=== PATIENT | female | born 1955 | race Caucasian/White ===

== ENCOUNTER 2021-09-01 09:35 | Outpatient (REF) | payer MEDICARE, SELFPAY | END 2021-09-01 09:36 | disposition home or self-care (01) | LOC: HO.BBR 09:35 | PROVIDERS: Visit Provider Internal Medicine Hematology & Oncology | DX: Z13.89 Encounter for screening for other disorder (principal) ==

== ENCOUNTER 2022-01-02 09:12 | Outpatient (REF) | payer MEDICARE, SELFPAY | END 2022-01-02 09:13 | disposition home or self-care (01) | LOC: HO.BBR 09:12 | PROVIDERS: Visit Provider Internal Medicine Hematology & Oncology | DX: Z13.89 Encounter for screening for other disorder (principal) ==

== ENCOUNTER 2022-10-15 09:22 | Outpatient (REF) | payer MEDICARE, SELFPAY | END 2022-10-15 09:23 | disposition home or self-care (01) | LOC: HO.BBR 09:22 | PROVIDERS: Visit Provider Internal Medicine Hematology & Oncology | DX: Z13.89 Encounter for screening for other disorder (principal) ==

== ENCOUNTER 2023-03-19 09:15 | Outpatient (REF) | payer MEDICARE, SELFPAY | END 2023-03-19 09:16 | disposition home or self-care (01) | LOC: HO.BBR 09:15 | PROVIDERS: Visit Provider Internal Medicine Hematology & Oncology | DX: Z13.89 Encounter for screening for other disorder (principal) ==

== ENCOUNTER 2023-07-17 09:08 | Outpatient (REF) | payer MEDICARE, SELFPAY | END 2023-07-17 09:09 | disposition home or self-care (01) | LOC: HO.BBR 09:08 | PROVIDERS: Visit Provider Internal Medicine Hematology & Oncology | DX: Z13.89 Encounter for screening for other disorder (principal) ==

== ENCOUNTER 2024-10-13 13:08 | Outpatient (AMB) | payer MEDICARE, SELFPAY ==
[2024-10-13 13:32] VITALS: BP 110/70; PULSE 72; O2SAT 96; BMI 24.7
--- NOTE | 2024-10-13 13:32 | A.OFFVIS_ITS ---
Vital Signs 10/13/24 13:32 Height 5 ft 4 in Weight 143 lb 15.39 oz BMI 24.7 BP 110/70 Blood Pressure Location Lt brachial Position Sitting Pulse 72 Pulse Source Pulse Oximeter Pulse Oximetry (%) 96 Oxygen Delivery Method Room Air Intake Visit Reasons: OA Intake Note: Patient is here for follow up on osteoarthritis, giant cell arteritis. Patient would like have refill of Alendronate. Allergies codeine Allergy (Mild, Verified 10/13/24 13:37) Vomiting environmental allergies Allergy (Mild, Verified 10/13/24 13:37) swelling, watery eyes, swelling lips tetracycline Allergy (Mild, Verified 10/13/24 13:37) Unknown gabapentin Adverse Reaction (Intermediate, Verified 10/13/24 13:37) ryder, sick HPI HPI OA: Details: Off of Actemra since June [address] Geoff HOU. She developed nausea, headaches, fatigue, weakness. GI symptoms have been intermittent.Nausea is constant. Loosing weight. Rheumatology records reviewed from [facility]. Review of Systems Const All systems reviewed & are unremarkable except as noted in HPI and below Physical Exam Vital Signs: Last Vital Signs Pulse 72 10/13/24 13:32 BP 110/70 10/13/24 13:32 Pulse Ox 96 10/13/24 13:32 Oxygen Delivery Method Room Air 10/13/24 13:32 BMI result Body Mass Index 24.7 Const Other: General: Comfortable CVS: RRR Respiratory: clear to auscultation bilaterally. Good respiratory effort Skin: No lesions seen MSK: No tenderness of bilateral temples. +2 radial pulse bilaterally. A few P IP knees are tender bilaterally. No synovitis of any joints. [place] nodes present. 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 Good range of motion of upper extremity and lower extremity. Assessment & Plan Assessment & Plan (1) Giant cell arteritis: Comment: Patient has biopsy confirmed GCA (L bx 09/2020) treated with prednisone (09/2020-10/2023) and Actemra (08/2021-06/2024) now presenting with recurrent symptoms of headaches nausea, vomiting, weight loss as patient had on initial presentation with elevated inflammatory arthritis consistent with relapsed disease. Her inflammatory markers from 04/13/2024 at the [facility] were normal with ESR 0.5 mg/dL and CRP 1 mm/hr while she was on Actemra and in remission. She has relapse since being off of Actemra since 07/14/2024. Code(s): M31.6 - Other giant cell arteritis Category: Medical Plan: Start prednisone 10 mg daily Patient will call office in 2 weeks to report update. If symptoms have resolved, she will continue prednisone 10 mg daily for another 2 weeks and recheck inflammatory markers 1 month from starting prednisone. If symptoms have not completely resolved, we will need to increase prednisone. Start Actemra 162 mg subcutaneous weekly injection MANDY. [facility] pharmacy. Return to clinic in 3 months or sooner if needed (2) Osteopenia with high risk of fracture: Comment: Last bone density 10/14/2023 incomplete report in EMR. Code(s): M85.80 - Other specified disorders of bone density and structure, unspecified site Category: Medical Plan: We will request bone density report from 2020 and 2022 from the [facility] Continue alendronate 70 mg once weekly Continue calcium 600 mg twice a day and vitamin-D 25 mcg daily Orders: Orders Complete Blood Count Auto Diff 10/15/24 M31.6 - Other giant cell arteritis Albumin Level 10/15/24 M85.80 - Other specified disorders of bone density and structure, unspecified site Alanine Aminotransferase 10/15/24 M31.6 - Other giant cell arteritis Aspartate Amino Transferase 10/15/24 M31.6 - Other giant cell arteritis C Reactive Protein 10/15/24 M31.6 - Other giant cell arteritis Creatinine 10/15/24 M31.6 - Other giant cell arteritis Erythrocyte Sedimentation Rate 10/15/24 M31.6 - Other giant cell arteritis Vitamin D 25-OH Total 10/15/24 M85.80 - Other specified disorders of bone density and structure, unspecified site Calcium 10/15/24 M85.80 - Other specified disorders of bone density and structure, unspecified site Collagen Type I C-Telopeptide 10/15/24 M85.80 - Other specified disorders of bone density and structure, unspecified site Alkaline Phosphatase Bone 10/15/24 M85.80 - Other specified disorders of bone density and structure, unspecified site Coding Level of Care Code Est Pt Level 5 (43142) Complex EM visit Add On G2211 Diagnoses Giant cell arteritis M31.6 Osteopenia with high risk of fracture M85.80
== END 2024-10-13 14:21 | disposition home or self-care (01) ==
PROVIDERS: PCP Internal Medicine; Referring Provider Internal Medicine; Visit Provider Internal Medicine Rheumatology
DX: M31.6 Other giant cell arteritis (principal); M85.80 Other specified disorders of bone density and structure, unspecified site
CPT/HCPCS: 99214; G2211

== ENCOUNTER → 2024-10-13 13:08 | Outpatient (BNVA) | payer MEDICARE, SELFPAY | PROVIDERS: PCP Internal Medicine; Visit Provider Internal Medicine Rheumatology | DX: M31.6 Other giant cell arteritis (principal); M85.80 Other specified disorders of bone density and structure, unspecified site | CPT/HCPCS: 99212 ==

== ENCOUNTER 2024-10-15 09:40 | Outpatient (REF) | payer MEDICARE, SELFPAY ==
[2024-10-15 13:17] LABS: MANUAL DIFF FLAG NO
[2024-10-15 13:20] LABS: Basophils Absolute Auto 0.1 X10*3/uL (0.0-0.2); Basophils Percent Auto 1.1 % (0-2); Eosinophils Absolute Auto 0.3 X10*3/uL (0.0-0.4); Eosinophils Percent Auto 3.7 % (0-4); Hematocrit 36.7 % (37.0-47.0); Hemoglobin 12.2 g/dl (12.0-16.0); Imm Gran Abs Auto 0.02 X10*3/uL (0.00-0.03); Imm Gran Pct Auto 0.3 % (0.0-0.4); Lymphocytes Percent Auto 26.6 % (20-40); Mean Corpuscular HGB Conc 33.2 g/dl (31.0-35.0); Mean Corpuscular Hemoglobin 31.5 pg (27.0-33.0); Mean Corpuscular Volume 94.8 fL (80.0-98.0); Mean Platelet Volume 9.7 fL (9.4-12.3); Monocytes Absolute Auto 0.6 X10*3/uL (0.1-1.2); Monocytes Percent Auto 7.7 % (2-11); Neutrophils Absolute Auto 4.6 x10*3/uL (2.0-8.3); Neutrophils Percent Auto 60.6 % (45-73); Platelet Count 322 X10*3/uL (160-400); Red Blood Count 3.87 X10*6/uL (4.20-5.50); Red Cell Distribution Width 13.7 % (11.0-16.0); White Blood Count 7.6 X10*3/uL (4.8-10.8)
[2024-10-15 13:44] LABS: Alanine Aminotransferase 29 U/L (0-31); Aspartate Amino Transferase 27 U/L (5-31); C Reactive Protein 0.93 mg/dL (< or = 0.50); Estimated Glomerular Filt Rate > 60
[2024-10-15 13:55] LABS: Vitamin D 25-OH Total 35.1 ng/mL (>30)
[2024-10-15 14:21] LABS: Erythrocyte Sedimentation Rate 32 MM/HR (0-20)
[2024-10-19 21:28] LABS: Collagen Type I C-Telopeptide 98 pg/mL (see note)
[2024-10-21 22:34] LABS: Alkaline Phosphatase Bone 10.9 mcg/L (5.6-29.0)
== END 2024-10-15 09:41 | disposition home or self-care (01) ==
LOC: HO.HMGCLDS 09:40
PROVIDERS: PCP Internal Medicine; Visit Provider Internal Medicine Rheumatology
DX: M85.80 Other specified disorders of bone density and structure, unspecified site (principal); M31.6 Other giant cell arteritis
CPT/HCPCS: 36415; 82040; 82306; 82310; 82523; 82565; 84075; 84450; 84460; 85025; 85652; 86140

== ENCOUNTER 2025-01-12 10:24 | Outpatient (AMB) | payer MEDICARE, SELFPAY ==
--- NOTE | 2025-01-12 10:25 | A.OFFVIS_ITS ---
Vital Signs 01/12/25 10:27 Height 5 ft 4 in Weight 146 lb BMI 25.1 BP 130/64 Blood Pressure Location Lt brachial Position Sitting Pulse 83 Pulse Source Pulse Oximeter Pulse Oximetry (%) 97 Oxygen Delivery Method Room Air Intake Visit Reasons: Follow Up 3mo Intake Note: Pt is present today for a follow up for OA. 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 GCA symptoms have resolved. She denies any new symptoms. Joint pain also resolved on prednisone. No recent infections. She was also started on atorvastatin due to hyperlipidemia. Review of Systems Const All systems reviewed & are unremarkable except as noted in HPI and below Physical Exam Vital Signs: Last Vital Signs Pulse 83 01/12/25 10:27 BP 130/64 01/12/25 10:27 Pulse Ox 97 01/12/25 10:27 Oxygen Delivery Method Room Air 01/12/25 10:27 BMI result Body Mass Index 25.1 Const Other: General: Comfortable CVS: RRR Respiratory: clear to auscultation bilaterally. Good respiratory effort Skin: No lesions seen MSK: No tenderness of bilateral temples. +2 radial pulse bilaterally. No tenderness of any joint. No synovitis of any joints. [place] nodes present. 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 Good range of motion of upper extremity and lower extremity. Assessment & Plan Assessment & Plan (1) Giant cell arteritis: Comment: Patient has biopsy confirmed GCA (L bx 09/2020) treated with prednisone (09/2020-10/2023) and Actemra (08/2021-06/2024), relapsed 09/2024 presenting with recurrent symptoms of headaches nausea, vomiting, weight loss as patient had on initial presentation with elevated inflammatory arthritis. Her inflammatory markers from 04/13/2024 at the [facility] were normal with ESR 0.5 mg/dL and CRP 1 mm/hr while she was on Actemra and in remission. She is back on Actemra and prednisone 20 mg daily with resolution of symptoms. Inflammatory markers normalized January 05/2025. Code(s): M31.6 - Other giant cell arteritis Category: Medical Plan: Decrease prednisone 2.5 mg every 2 weeks until she is on 10 mg daily. She will remain on prednisone 10 mg daily until follow-up Continue Actemra 162 mg subcutaneous injection weekly Labs for drug monitoring on high-risk medication up-to-date from 01/05/2025 including lipid panel. Requesting lab report to be scanned in to EMR Return to clinic in 3 months Orders: Orders C Reactive Protein Today M31.6 - Other giant cell arteritis Erythrocyte Sedimentation Rate Today M31.6 - Other giant cell arteritis Medications: New prednisone Take 7 tablet daily for 2 weeks, 6 tablet daily 2 weeks, 5 tablet daily 2 weeks, then stay on prednisone 10mg daily 2.5 mg PO DIRECTED 308 tabs 0RF Coding Level of Care Code Est Pt Level 4 (47366) Complex EM visit Add On G2211 Diagnoses Giant cell arteritis M31.6
[2025-01-12 10:27] VITALS: BP 130/64; PULSE 83; O2SAT 97; BMI 25.1
--- OUTSIDE RECORDS SUMMARY | 2025-01-12 11:23 | XMS_ITS | Clinical Summary ---
Author Organization [facility] Address [address] [place] [id number] Care Team Providers Care Track Laminating Machine Tender Name Role Phone Pcp, No Primary Care Provider Unavailabl e Social History Tobacco Use Types Packs/Day Years Used Date Smoking Tobacco: Never Assessed Sex and Gender Information Value Date Recorded Sex Assigned at Female 12/11/2024 3:42 PM EST Gender Identity Female 12/11/2024 3:42 PM EST Sexual Orientation Not on file Plan of Treatment Upcoming Encounters Date Type Department Care Team (Late st Contact Info) Description 05/14/2025 10:45 AM EDT Office Visit [address] [id number] Verito Rutherford MD [address] [place] [address] Health Maintenance Due Date Last Done Comments Hepatitis C Virus Screening 1954 DTaP/Tdap/Td Vaccines (1 - Tdap) 1973 Mammogram 1994 Colonoscopy 1999 Pneumococcal Vaccines 50+ (1 of 1 - PCV) 2004 Zoster (Shingles) Vaccine (1 of 2) 2004 DXA Bone Density (Females,Ag es 65 and older) 2019 Influenza Vaccine 06/25/2024 COVID-19 Vaccine ( - 2023-2 5 season) 2024 RSV Vaccine 60 years and old er and Patients (1 - 1-dose 75+ series) 2029 Hepatitis B Vaccines Aged Out No long er eligible based on patient's age to complete this topic Care Teams Track Laminating Machine Tender Relationship Specialty Start Date End Date Pcp, No PCP - General General Medicine 10/12/24
--- OUTSIDE RECORDS SUMMARY | 2025-01-12 11:23 | XMS_ITS | Encounter Summary ---
Author Organization [facility] Address [address] [place] [address] Care Team Providers Care Tunnel Miner Name Role Phone Riley Martinez MD Primary Care Provide r Reason for Visit * Reason Comments Follow-up Encounter Details Date Type Department Care Team (Latest Contact Info) Description 12/30/2024 9:40 AM EST Office Visit [facility] [address] [facility] [place] [address] [place] [address] Rosemarie Paris NP [address] [place], [place] [id number] Coronary artery disease involving [place] coronary artery of [place] heart without angina pectoris (Primary Dx); Hypertension, unspecified type; Pure hypercholesterolemia Social History Tobacco Use Types Packs/Day Years Used Date Smoking Tobacco: Every Day Cigarettes Smokeless Tobacco: Never Tobacco Cessation:Ready to Q uit: Not Asked; Counseling Given: Not Answered Alcohol Use Standard Drinks/Week Comments Yes 3 (1 standard drink = 0.6 oz pur e alcohol) Comments Unknown Sex and Gender Information Value Date Recorded Sex Assigned at Not on file Legal Sex Female 3:02 PM EST Gender Identity Not on file Sexual Orientation Not on file documented as of this encounter Last Filed Vital Signs Vital Sign Reading Time Taken Comments Blood Pressure 138/58 12/30/2024 10:48 AM EST Pulse 80 12/30/2024 9:51 AM EST Temperature - - Respiratory Rate - - Oxygen Saturation 97% 12/30/2024 9:51 AM EST Inhaled Oxygen Concentration - - Weight 70.8 kg (156 lb) 12/30/2024 9:51 AM EST Height 162.6 cm (5' 4 ) 12/30/2024 9:51 AM EST Body Mass Index 26.78 12/30/2024 9:51 AM EST documented in this encounter Ordered Prescriptions Prescription Sig Dispense Quantity Refills Last Filled Start Date End Date atorvastatin (LIPITOR) 40 mg tablet Take 1 tablet (40 mg total) by mouth 1 (one) time each day. 90 each 3 12/30/2024 documented in this encounter Progress Notes * Diana Mirza RN - 12/30/2024 11:02 AM ESTAssociated Problem(s): HLD (hyperlipidemia) Patient has a history of hyperlipidemia and given history of coronary artery disease LDL goal should be less than 70. Lipid panel completed August 2024 LDL 107. Will increase atorvastatin from 20 mgto 40 mg daily and have her repeat a lipid panel in 12 weeks. Will continue her efforts to increaseexercise and follow a heart healthy diet. * Diana Mirza RN - 12/30/2024 11:00 AM ESTAssociated Problem(s): Hypertension Patient with a history of hypertension on amlodipine 10 mg once a day. Blood pressure initially elevated 140/70, mildly improved on recheck at 138/58. Patient advised to monitor her blood pressure a couple times a week for the next few weeks and contact the office if she finds the average greater than 140/80. If blood pressure is noted to be elevated at home can consider adding hydrochlorothiazide as she does have a propensity to hold onto fluid with salty fluid foods or may consider a beta-miriam which could be helpful for her significant anxiety. Patient will contact the office with blood pressure readings in about a month, for now will continue amlodipine as prescribed. * Diana Mirza RN - 12/30/2024 10:58 AM ESTAssociated Problem(s): Coronary artery disease involving [place] coronary artery of [place] heart without angina pectoris Patient has a history of coronary artery disease first noted on a low-dose CT scan in 2020 with a heavy LAD calcification noted on CT attenuation during a nuclear stress test in June 2023. She is not having any current signs or symptoms of coronary insufficiency at this time. Will continue with aspirin and amlodipine as prescribed. Patient is aware to contact provider should she develop any chest discomfort or shortness of breathat rest or with exertion and seek immediate medical attention for symptoms lasting longer than 10 to 15 minutes by calling 911. 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 Moose Paredes Nadeen is a 69 y.o. old female here for cardiac follow up of: Hypertension, hyperlipidemia, and coronary artery disease. She was last seen by Dr. Virk in May 2023. 1. February 2023 ETT showing no ischemic EKG changes however motion artifact made several exercise EKGis difficult to interpret. 2. June 2023 nuclear stress test showing normal perfusion and no evidence of ischemia or infarct by myocardial perfusion imaging after attenuation correction at an adequate level of stress. LVEF calculated 65%. Heavy LAD calcification was noted on CT attenuation. Patient presents today with no cardiac complaints. 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 She also had a recurrence of giant cell arteritis and is back on prednisone. No recent hospitalizations. She denies any chest discomfort and shortnessof breath at rest or with exertion. She denies palpitations. She denies any dizziness/lightheadedness, near-syncope, or syncope. She denies orthopnea, PND, and uses 1 pillow at night. On occasion shewill notice bilateral ankle swelling, specifically after having a salty meal. This typically resolves overnight. She has been riding her exercise bike 10 to 15 minutes a few times a week. She does not have any symptoms with this level of activity. He has been taking her medications as prescribed. She attempts to follow a low-salt, low-fat diet. She is still smoking cigarettes. ACTIVE MEDICATIONS: Outpatient Medications Marked as Taking for the 12/30/24 encounter (Office Visit) with Rosemarie Paris NP Medication Sig Dispense Refill albuterol sulfate (ProAir RespiClick) 90 mcg/actuation aerosol powdr breath activated Inhale into the lungs. amLODIPine (NORVASC) 10 mg tablet TAKE 1 TABLET BY MOUTH DAILY 90 tablet 1 aspirin 81 mg chewable tablet Chew 1 tablet (81 mg total) 1 (one) time each day. buPROPion XL (WELLBUTRIN XL) 300 mg 24 hr tablet Take 1 tablet (300 mg total) by mouth 1 (one) timeeach day. cetirizine (ZyrTEC) 10 mg tablet Take 1 tablet (10 mg total) by mouth 1 (one) time each day. cholecalciferol (VITAMIN D-3) 5,000 Units tablet Take by mouth. MAGNESIUM CARBONATE ORAL Take by mouth. methylphenidate (RITALIN) 20 mg tablet Take 1 tablet (20 mg total) by mouth 1 (one) time each day. pantoprazole (PROTONIX) 40 mg EC tablet Take 1 tablet (40 mg total) by mouth 2 (two) times a day. 180 tablet 3 predniSONE (DELTASONE) 20 mg tablet Take 1 tablet (20 mg total) by mouth 1 (one) time each day. tiZANidine (ZANAFLEX) 2 mg tablet Take 1 tablet (2 mg total) by mouth every 6 (six) hours if needed. tocilizumab (ACTEMRA) subcutaneous injection Inject into the skin. valACYclovir (VALTREX) 1 gram tablet if needed. [DISCONTINUED] atorvastatin (LIPITOR) 20 mg tablet TAKE 1 TABLET BY MOUTH DAILY 30 tablet 3 PAST MEDICAL HISTORY: Patient Active Problem List Diagnosis Date Noted Date Diagnosed Coronary artery disease involving [place] coronary artery of [place] heart without angina pectoris 12/30/2024 Hypertension 06/21/[address] 06/20/2023 HLD (hyperlipidemia) 06/20/2023 Resolved Problems Diagnosis Date Diagnosed Chest pain Last Assessment & Plan: She has been experiencing exertional chest burning sensation for a few years and symptom has been more or less stable without acceleration. Symptoms are concerning for exertional angina. But she did not have similar chest discomfort with target heart rate and reasonable functional capacity during ETT. She does have a coronary artery calcification and symptoms are suggestive of angina. I will repeat stress test with nuclear perfusion modality. I will increase amlodipine to 10 mg daily due to suboptimal control hypertension. LDL is not at target either. I will increase atorvastatin to 20 mg daily. ALLERGIES: Allergies Allergen Reactions Gabapentin Tetracycline SOCIAL HISTORY: Social History Tobacco Use Smoking status: Every Day Types: Cigarettes Smokeless tobacco: Never Substance Use Topics Alcohol use: Yes Alcohol/week: 3.0 standard drinks of alcohol Types: 3 Glasses of wine per week PHYSICAL EXAM: Vitals: 12/30/24 0951 12/30/24 1048 BP: (!) 140/70 138/58 BP Location: Left arm Patient Position: Sitting BP Cuff Size: Adult Pulse: 80 SpO2: 97% Weight: 70.8 kg (156 lb) Height: 1.626 m (64 ) GENERAL: WDWN 69 y.o. female resting comfortably on the exam table in no acute distress HEENT: NCAT, negative JVD, carotid pulses +2 bilaterally, no bruit RESPIRATORY: Lungs clear, No wheezes/rales/rhonchi CARDIAC: normal S1S2, RRR no Murmur/heaves/rubs/gallops, no S3S4 EXTREMITIES: no edema PULSES: Radial and Pedal +2 bilaterally NEURO: A&Ox3 MS: Moving all extremities without focal findings. EKG: Encounter Date: 12/30/24 ECG 12 lead Result Value Ventricular Rate ECG 75 Atrial Rate 75 P-R Interval 134 QRS Duration 96 Q-T Interval 360 QTc 402 P Wave [place] 83 R [place] 76 T [place] 42 ECG Interpretation Normal sinus rhythm Minimal voltage criteria for LVH, may be normal variant Nonspecific ST abnormality Abnormal ECG unchanged prior EKG *Note: Due to a large number of results and/or encounters for the requested time period, some results have not been displayed. A complete set of results can be found in Results Review. TESTIN09/02/2024 Total cholesterol 191 Triglycerides 111 HDL 64 VLDL 20 LDL 107 As per AHA guidelines and previously established plan of care by Dr. Virk, we discussed the following today: ASSESSMENT/PLAN: Problem List Items Addressed This Visit HLD (hyperlipidemia) Patient has a history of hyperlipidemia and given history of coronary artery disease LDL goal should be less than 70. Lipid panel completed August 2024 LDL 107. Will increase atorvastatin from 20 mgto 40 mg daily and have her repeat a lipid panel in 12 weeks. Will continue her efforts to increaseexercise and follow a heart healthy diet. Relevant Medications atorvastatin (LIPITOR) 40 mg tablet Other Relevant Orders Lipid panel Hypertension Patient with a history of hypertension on amlodipine 10 mg once a day. Blood pressure initially elevated 140/70, mildly improved on recheck at 138/58. Patient advised to monitor her blood pressure a couple times a week for the next few weeks and contact the office if she finds the average greater than 140/80. If blood pressure is noted to be elevated at home can consider adding hydrochlorothiazide as she does have a propensity to hold onto fluid with salty fluid foods or may consider a beta-miriam which could be helpful for her significant anxiety. Patient will contact the office with blood pressure readings in about a month, for now will continue amlodipine as prescribed. Relevant Orders ECG 12 lead (Completed) Coronary artery disease involving [place] coronary artery of [place] heart without angina pectoris - Primary Patient has a history of coronary artery disease first noted on a low-dose CT scan in 2020 with a heavy LAD calcification noted on CT attenuation during a nuclear stress test in June 2023. She is not having any current signs or symptoms of coronary insufficiency at this time. Will continue with aspirin and amlodipine as prescribed. Patient is aware to contact provider should she develop any chest discomfort or shortness of breathat rest or with exertion and seek immediate medical attention for symptoms lasting longer than 10 to 15 minutes by calling 911. Relevant Medications atorvastatin (LIPITOR) 40 mg tablet Orders Placed This Encounter Procedures Lipid panel ECG 12 lead Thank you for allowing us to participate in the care of this patient. The patient will follow up in1 year, sooner PRN. This note is completed with voice recognition software. Please pardon any grammatical or syntax errors. I personally spent a total of 30 minutes, including both [id number] and gsg-upeo-gb-face time on the date of the encounter, addressing the above diagnoses. Activities performed in this time includechart review, obtaining / reviewing history, performing a medically necessary evaluation, documentation and counseling including medical decision making of 1. Coronary artery disease involving [place] coronary artery of [place] heart without angina pectoris 2. Hypertension, unspecified type 3. Pure hypercholesterolemia . Cosigned by Taylor iVrk MD at 12/31/2024 7:55 AM EST documented in this encounter Plan of Treatment Not on file documented as of this encounter Procedures Procedure Name Priority Date/Time Associated Diagnosis Comments LIPID PANEL Routine 01/05/2025 9:45 AM EST Pure hypercholesterolemia ECG 12-LEAD Routine 12/30/2024 2:25 PM EST Hypertension, unspecified type documented in this encounter Results * (ABNORMAL) Lipid panel (01/05/2025 9:45 AM EST) Cholesterol Total 201(H) 100 - 199 mg/dL [facility] Triglycerides 141 0 - 149 mg/dL [facility] HDL Cholesterol 93 >39 mg/dL [facility] VLDL Cholesterol Calculated 24 5 - 40 mg/dL [facility] LDL Chol Calc (NIH) 84 0 - 99 mg/dL [facility] 1 Blood Venous blood specimen / Unknown 01/05/2025 9:45 AM EST 01/05/2025 Narrative [facility] 1 - 01/06/2025 1:05 AM EST Performed at: ??01 - [facility] [address] ??[id number] Direct Care Counselor: Demetrice Jimenez MD, Phone: ??[phone] us Rosemarie Paris NP LAB BLOOD ORDERABLES Final Resu lt [facility] * ECG 12 lead (12/30/2024 2:25 PM EST) Ventricular Rate ECG 75 BPM GEMUSE Atrial Rate 75 BPM GEMUSE P-R Interval 134 ms GEMUSE QRS Duration 96 ms GEMUSE Q-T Interval 360 ms GEMUSE QTc 402 ms GEMUSE P Wave [place] 83 degrees GEMUSE R [place] 76 degrees GEMUSE T [place] 42 degrees GEMUSE ECG Interpretation Normal sinus rhythm Minimal voltage criteria for LVH, may be normal variant Nonspecific ST abnormality Abnormal ECG unchanged prior EKG Confirmed by Sidney VIRK YUFENG ([id number]) on 12/31/2024 7:58:35 AM GEMUSE 12/30/2024 10:0 4 AM EST 12/31/2024 7:58 AM EST Rosemarie Paris NP ECG ORDERABLES Edited Result - Final GEMUSE documented in this encounter Visit Diagnoses Diagnosis Coronary artery disease involving [place] coronary artery of [place] heart without angina pectoris- Primary Hypertension, unspecified type Pure hypercholesterolemia documented in this encounter Discontinued Medications Medication Sig Discontinue Reason Start Date End Da te atorvastatin (LIPITOR) 20 mg tablet TAKE 1 TABLET BY MOUTH DAILY Dose adjustment 12/29/2024 12/30/2024 atorvastatin (LIPITOR) 20 mg tablet Take 1 tablet (20 mg total) by mouth 1 (one) time each day. Dose adjustment 08/25/2024 12/30/2024 docusate sodium (COLACE) 100 mg capsule Take 1 capsule (100 mg total) by mouth 2 (two) times a day. Discontinued by another clinician 12/30/2024 documented as of this encounter Care Teams Tunnel Miner Relationship Specialty Start Date End Date Riley Martinez MD [address] [place] [address] [place] PCP - General 09/18/24 documented as of this encounter
--- OUTSIDE RECORDS SUMMARY | 2025-01-12 11:23 | XMS_ITS | Clinical Summary ---
Author Organization [address] [place] [address] [place] [phone] Phone Care Team Providers Care Winder Helper Name Role Phone Riley Martinez MD Primary Care Provide r Allergies Active Allergy Reactions Criticality Noted Date Comments Gabapentin 06/21/2023 Tetracycline 06/21/2023 Medications pantoprazole (PROTONIX) 40 mg EC tabletIndication s:Gastroesophage al reflux disease with esophagitis, unspecified whether hemorrhage Take 1 tablet (40 mg total) by mouth 2 (two) times a day. 180 tablet 3 4 Active amLODIPine (NORVASC) 10 mg tablet TAKE 1 TABLET BY MOUTH DAILY 90 tablet 1 4 Active MAGNESIUM CARBONATE ORAL Take by mouth. Active albuterol sulfate (ProAir RespiClick) 90 mcg/actuation aerosol powdr breath activated Inhale into the lungs. Active alendronate (FOSAMAX) 70 mg tablet Take 1 tablet (70 mg total) by mouth every 7 (seven) days. Active aspirin 81 mg chewable tablet Chew 1 tablet (81 mg total) 1 (one) time each day. Active buPROPion XL (WELLBUTRIN XL) 300 mg 24 hr tablet Take 1 tablet (300 mg total) by mouth 1 (one) time each day. Active cetirizine (ZyrTEC) 10 mg tablet Take 1 tablet (10 mg total) by mouth 1 (one) time each day. Active cholecalciferol (VITAMIN D-3) 5,000 Units tablet Take by mouth. Active methylphenidate (RITALIN) 20 mg tablet Take 1 tablet (20 mg total) by mouth 1 (one) time each day. Active predniSONE (DELTASONE) 20 mg tablet Take 1 tablet (20 mg total) by mouth 1 (one) time each day. Active tiZANidine (ZANAFLEX) 2 mg tablet Take 1 tablet (2 mg total) by mouth every 6 (six) hours if needed. Active tocilizumab (ACTEMRA) subcutaneous injection Inject into the skin. Active valACYclovir (VALTREX) 1 gram tablet if needed. Active atorvastatin (LIPITOR) 40 mg tablet Take 1 tablet (40 mg total) by mouth 1 (one) time each day. 90 each 3 5 Active atorvastatin (LIPITOR) 20 mg tablet TAKE 1 TABLET BY MOUTH DAILY 30 tablet 3 5 12/30/19 25 Discontinue d(Dose adjustment) atorvastatin (LIPITOR) 20 mg tablet Take 1 tablet (20 mg total) by mouth 1 (one) time each day. 4 12/30/19 25 Discontinue d(Dose adjustment) docusate sodium (COLACE) 100 mg capsule Take 1 capsule (100 mg total) by mouth 2 (two) times a day. 12/30/19 25 Discontinue d(Discontin ued by another clinician) Active Problems Problem Noted Date Diagnosed Date Coronary artery disease invo lving [place] coronary artery of [place] heart without angina pectoris 12/30/2024 Assessment & Plan (12/30/2024 10:58 AM EST): Patient has a history of coronary artery [...] develop any chest discomfort or shortness of breath at rest or with exertion and seek immediate medical attention for symptoms lasting longer than 10 to 15 minutes by calling 911. Hypertension 06/21/2023 Assessment & Plan (12/30/2024 11:00 AM EST): Patient with a history of hypertension on [...] salty fluid foods or may consider a beta- miriam which could be helpful for her significant anxiety. Patient will contact the office with blood pressure readings in about a month, for now will continue amlodipine as prescribed. Abnormal chest CT 06/20/2023 HLD (hyperlipidemia) 06/20/2023 Assessment & Plan (12/30/2024 11:02 AM EST): Patient has a history of hyperlipidemia and given history of coronary artery disease LDL goal should be less than 70. Lipid panel completed August 2024 LDL 107. Will increase atorvastatin from 20 mg to 40 mg daily and have her repeat a lipid panel in 12 weeks. Will continue her efforts to increase exercise and follow a heart healthy diet. Resolved Problems Problem Noted Date Diagnosed Date Resolved Date Chest pain 06/20/2023 12/30/2024 Overview (12/28/2024): Last Assessment & Plan: She has been [...] will increase atorvastatin to 20 mg daily. Encounters Date Type Department Care Team Description 12/30/2024 9:40 AM EST Office Visit [facility] [address] [place] [address] Rosemarie Paris NP Coronary artery disease involving [place] coronary artery of [place] heart without angina pectoris (Primary Dx); Hypertension, unspecified type; Pure hypercholesterolemia 10/28/2024 Telephone Gastroenterology - [address] [facility] [address] [place] [address] Amanda Herrera MA from Last 3 Months Surgical History Surgery Date Site/Laterality Comments OTHER SURGICAL HISTORY PROCEDURE: HISTORY OTHER; COMMENT: cervix cryosurgery cataract OTHER SURGICAL HISTORY PROCEDURE: HISTORY OTHER; COMMENT: EGD OTHER SURGICAL HISTORY PROCEDURE: HISTORY OTHER; COMMENT: ARTHROSCOPIC REPAIR OF ROTATOR CUFF Medical History Medical History Date Comments Abnormal chest CT DX:Abnormal ch est CT Acromioclavicular joint arthritis DX:Acromioclavicular joint arthritis Adjustment disorder with anxiety DX:Adjustment disorder with anxiety Anxiety DX:Anxiety Rosado esophagus DX:Rosado eso phagus Colon polyp DX:Colon polyp Depression DX:Depression Liver cyst DX:Liver cyst Diverticulosis of sigmoid colon DX:Diverticulosis of sigmoid colon Erythema nodosum DX:Erythema nod osum HTN (hypertension) DX:HTN (hyper tension) IFG (impaired fasting glucose) D X:IFG (impaired fasting glucose) Fibrocystic breast disease DX:Fi brocystic breast disease Giant cell arteritis (CMS/HCC) D X:Giant cell arteritis (HCC) H/O anaphylactic shock DX:H/O an aphylactic shock H/O erythema nodosum DX:H/O eryt bimal nodosum Hemochromatosis DX:Hemochromatos is Hoarseness DX:Hoarseness IPMN (intraductal papillary mucinous neoplasm) DX:IPMN (intraductal papilla ry mucinous neoplasm) Lower back pain DX:Lower back pa in Lumbar radiculopathy DX:Lumbar r adiculopathy Lumbar sprain DX:Lumbar sprain Macrocytic DX:Macrocytic OA (osteoarthritis) of knee DX:O A (osteoarthritis) of knee Psoriasis DX:Psoriasis Nasal septal deviation DX:Nasal septal deviation Sciatica DX:Sciatica Scoliosis DX:Scoliosis Temporal arteritis (CMS/HCC) DX: Temporal arteritis (HCC) Urinary frequency DX:Urinary desi quency Chest pain 06/20/2023 Last Assessment & Plan: She has been experiencing exertional chest burning sensation for a few years and symptom has been more or less stable without acceleration. Symptoms are concerning for exertional angina. But she did not have similar chest discomfort with target heart rate and reasonable functional capacity during ETT. She does have a coronary artery calcification and symptoms are sug Social History Tobacco Use Types Packs/Day Years [...] on file Sexual Orientation Not on file Obstetrics History Last Filed Vital Signs Vital Sign Reading [...] Mass Index 26.78 12/30/2024 9:51 AM EST Plan of Treatment Health Maintenance Due Date Last Done Comments Breast Cancer Screening 1955 Hepatitis A Vaccines (1 of 2 - Risk 2-dose series) 1973 Zoster Vaccines (1 of 2) 2004 Hepatitis B Vaccines (1 of 3 - Risk 3-dose series) 2014 RSV Immunization Patients 60+ Years Old (1 - Risk 60-74 years 1-dose series) 2014 DTaP,Tdap,and Td Vaccines (2 - Td or Tdap) 11/25/2017 11/25/2007 Pneumococcal Vaccine: 50+ Years (2 of 2 - PPSV23) 01/21/2020 11/26/2019 Colorectal Cancer Screening: Colonoscopy 10/24/2022 Depression Screening 10/24/2022 Falls Risk Assessment 10/24/2022 Hepatitis C Screening 10/24/2022 Medicare Annual Wellness Visit 10/24/2022 Osteoporosis Screening (Bone Density Screening) 10/24/2022 Social Influencers of Health Screening 10/24/2022 Hypertension/CHF/CAD Annual BMP Blood Test 12/24/2023 Cholesterol Screening (Lipid Panel) 01/05/2030 01/05/2025, 06/21/2023 Influenza Vaccine Completed 09/17/2024, , 08/30/2022, Additional history exists COVID-19 Vaccine Completed 10/06/2024, , 04/27/2022, Additional history exists HIB Vaccines Aged Out No longer eligi ble based on patient's age to complete this topic HPV Vaccines Aged Out No longer eligi ble based on patient's age to complete this topic IPV Vaccines Aged Out No longer eligi ble based on patient's age to complete this topic MMR Vaccines Aged Out No longer eligi ble based on patient's age to complete this topic Meningococcal ACWY Vaccine Aged Out N o longer eligible based on patient's age to complete this topic Meningococcal B Vacine Aged Out No lo nger eligible based on patient's age to complete this topic RSV Immunization Patients Under 20 months Aged Out No longer eligible based on patient's age to complete this topic Varicella Vaccines Aged Out No longer eligible based on patient's age to complete this topic Procedures Procedure Name Priority Date/Time Associated Diagnosis Comments LIPID PANEL Routine 01/05/2025 9:45 AM EST Pure hypercholesterolemia ECG 12-LEAD Routine 12/30/2024 2:25 PM EST Hypertension, unspecified type from Last 3 Months Results * (ABNORMAL) Lipid panel (01/05/2025 9:45 [...] AM EST Performed at: ??01 - [facility] [address] ??[id number] Wall Scraper: Demetrice Jimenez MD, Phone: ??[phone] us Rosemarie Paris NP LAB BLOOD ORDERABLES Final Resu lt Performing Organization Address City/[facility]/ZIP Co de Phone Number [facility] 1 * ECG 12 lead (12/30/2024 2:25 PM EST) Ventricular Rate ECG 75 BPM GEMUSE Atrial Rate 75 BPM GEMUSE P-R Interval 134 ms GEMUSE QRS Duration 96 ms GEMUSE Q-T Interval 360 ms GEMUSE QTc 402 ms GEMUSE P Wave [place] 83 degrees GEMUSE R [place] 76 degrees GEMUSE T [place] 42 degrees GEMUSE ECG Interpretation Normal sinus rhythm Minimal voltage criteria for LVH, may be normal variant Nonspecific ST abnormality Abnormal ECG unchanged prior EKG Confirmed by Sidney MARQUEZ YUFENG ([id number]) on 12/31/2024 7:58:35 AM GEMUSE 12/30/2024 10:0 4 AM EST 12/31/2024 7:58 AM EST Rosemarie Paris MACHINE REPAIRER ECG ORDERABLES Edited Result - Final Performing Organization Address [facility] Co de Phone Number GEMUSE from Last 3 Months Insurance [employer] - [place] MEDICARE ADVANTAGE Care Teams Winder Helper Relationship Specialty Start Date End Date Riley Martinez MD [address] [place] [address] [place] PCP - General 09/18/24
--- OUTSIDE RECORDS SUMMARY | 2025-01-12 11:23 | XMS_ITS | Clinical Summary ---
Author Organization [facility] Address [address] [place] [address] Care Team Providers Care National Accounts Recruiter Name Role Phone Verito Rutherford MD Primary Care Provider [phone] Allergies Active Allergy Reactions Criticality Noted Date Comments Codeine Nausea Only 05/22/2018 Medications Medication Sig Dispensed Refills Start Date End Date Status buPROPion (WELLBUTRIN XL) 300 MG 24 hr tablet Take 300 mg by mouth daily. 0 Active cetirizine (ZYRTEC) 5 MG tablet Take 5 mg by mouth daily. 0 Active nabumetone (RELAFEN) 500 MG tablet Take 500 mg by mouth 2 (two) times a day. 0 Active acyclovir (ZOVIRAX) 800 MG tablet Take 800 mg by mouth as needed. 0 Active tiZANidine (ZANAFLEX) 2 MG tablet Take 2 mg by mouth as needed. 0 Active Active Problems No known active problems Family History Medical History Relation Name Comments Diabetes Sister Alejandrina Stroke Sister Alejandrina Relation Name Status Comments Sister Alejandrina Social History Tobacco Use Types Packs/Day Years Used Date Smoking Tobacco: Every Day Cigarettes 30 Smokeless Tobacco: Never Alcohol Use Standard Drinks/Week Comments Yes 0 (1 standard drink = 0.6 oz pur e alcohol) socially Sex and Gender Information Value Date Recorded Sex Assigned at Not on file Gender Identity Not on file Sexual Orientation Not on file Last Filed Vital Signs Vital Sign Reading Time Taken Comments Blood Pressure 147/57 05/22/2018 2:34 PM EDT Pulse 75 05/22/2018 2:34 PM EDT Temperature 37.3 ??C (99.1 ??F) 05/22/2018 2:34 PM ED T Respiratory Rate - - Oxygen Saturation - - Inhaled Oxygen Concentration - - Weight 67.9 kg (149 lb 12.8 oz) 05/22/2018 2:34 PM EDT Height 162.6 cm (5' 4 ) 05/22/2018 2:34 PM EDT Body Mass Index 25.71 05/22/2018 2:34 PM EDT Plan of Treatment Health Maintenance Due Date Last Done Comments Hepatitis C Screening 1955 COVID-19 Vaccine (#1) 05[birth year]17/1956 Pneumococcal Vaccine (1 of 2 - PCV) 1960 Depression Screening 1966 Preventative Health Evaluation 1972 DTap / Tdap / Td (1 - Tdap) 1973 Colon Cancer Screening (Colonoscopy) 1999 Breast Cancer Screening (Mammogram) 2004 Shingrix-Zoster Vaccine (1 of 2) 2004 Fall Risk Assessment 2019 Osteoporosis Screening (DEXA Scan) 2019 Influenza Vaccine (#1) 2024 RSV Adult > 60+ Yrs or Pregn ant (1 - 1-dose 75+ series) 2029 Hepatitis B Vaccines Aged Out No long er eligible based on patient's age to complete this topic RSV Ped < 20 months Aged Out No longe r eligible based on patient's age to complete this topic Care Teams National Accounts Recruiter Relationship Specialty Start Date End Date Verito Rutherford MD [address] [place] [address] [place] [address] PCP - General Mechanical Engineering Lecturer 05/13/18
--- OUTSIDE RECORDS SUMMARY | 2025-01-12 11:24 | XMS_ITS ---
Author Organization [facility] Address [address] [place] [address] Care Team Providers Care Paper Supervisor Name Role Phone Jerod Raymond [phone] ALLERGIES, ADVERSE REACTIONS, ALERTS Substance Code Code System Type Reaction Severity Status Start Date End Date chlortetracycline 2408 RxNorm Drug allergy () 0 codeine 2670 RxNorm Drug allergy () 0 gentamicin 9166488 RxNorm Drug allergy () 0 codeine 2670 RxNorm Drug allergy () 1 MEDICATIONS Medication Code Code System Start Date Stop Date Route Dosage Directions Fill Instructions atorvastatin calcium RxNorm 08/25/20 24 1 naproxen 7258 RxNorm 9 alendronate sodium RxNorm 10/14/ 023 amlodipine besylate RxNorm 024 1 erythromycin 467501 RxNorm 12/21/19 25 ophthalmic (eye) 0.5 prednisone 204772 RxNorm 9 07/02/20 19 oral 1 bupropion HCl RxNorm 09/25/20 24 1 PROBLEMS Problem Name Code Code System Start Date End Date Stat Hemochromatosis, unspecified 162071185 [facility] 06/27/2019 Active Unspecified thoracic, thoracolumbar and lumbosacral intervertebral disc disorder 83679617 [facility] 06/27/2019 Active Sprain of ligaments of cervical spine, initial encounter 18428186 [facility] 06/27/2019 Active Essential (primary) hypertension 46612038 [facility] Active Unspecified blepharitis righ t lower eyelid 200608802663696 [facility] 12/21/2024 Active ENCOUNTERS Encounter Diagnosis Code Code System Date Stat Unspecified blepharitis righ t lower eyelid 467499966005122 [facility] 12/21/2024 Active IMMUNIZATIONS * None VITAL SIGNS Code Code System Vitals Name Date Value and Un its 8462-4 [facility] Blood Pressure-Diastolic 12/21/2024 70 mmHg 8480-6 [facility] Blood Pressure-Systolic 12/21/2024 1 41 mmHg 8867-4 [facility] Heart Rate 12/21/2024 78 /min 9279-1 [facility] Respiratory Rate 12/21/2024 18 /min 8310-5 [facility] Body Temperature 12/21/2024 96.9 F 66630-0 inc Oxygen Saturation 12/21/2024 97 % SOCIAL HISTORY * None PROCEDURES * None MEDICAL EQUIPMENT * Patient has no history of implantable devices ASSESSMENT Assessment you were evaluated for the e yelid swelling and redness.I suspect you may be developing a blockage of the pores along the eyelid and potentially developing a stye.Apply warm compresses to the area frequently throughout the day with upward massage to the eyelid.Use the ointment as prescribed.As we discussed if you develop any spreading redness, redness going around your eye, fevers, pain with eye movement, or any other new, concerning symptoms please be reevaluated immediately TREATMENT PLAN Type Description Date MEDICATION Take 5 mg/gram (0.5 %) ointment 12/21/2024 APPOINTMENT If not feeling bethany r in 3 day(s), please see your primary care physician. If you do not have a primary care physician, please return to this clinic. 12/21/2024 Lab Tests None GOALS * None HEALTH CONCERNS * No Health Concerns FUNCTIONAL AND COGNITIVE STATUS * None CONSULTATION NOTES * None DISCHARGE SUMMARY NOTES * None HISTORY AND PHYSICAL NOTES * Reason for visit - Illness Patient: GALLITO KEVIN, Sex: F (ID# [id number]) Date of : 1955 (69 years) Visit on 12/21/2024 (Log# [id number]) Historian: Self Triage Notes: Pain to touch on right side of her face. History of Present Illness: 69-year-old female presenting with right lower eyelid swelling, puffiness extending onto her cheek.Onset of over the past few days. States initially swelling was more prominent but has gone down a bit. Slightly itchy at times. No fever chills sweats. Has not noticed any pain with eye movement, eyeredness. No contact lens use. Complaint: The patient presents with a chief complaint of red eye of the right eye since 3 days ago. Review of Systems: The patient complains of the following recent symptoms: Eyes: eye swelling eye redness redness of the eye: See HPI The patient denies the following recent symptoms: Eyes: denies eye discharge, eye pain Allergies: gentamicin: Drug allergy. chlortetracycline: Drug allergy. codeine: Drug allergy. Medications: naproxen: naproxen; 0 refill(s); prednisone: prednisone 50 mg tablet; Take 1 (oral) 1 time per day for 5 days; Total Qty: 5 (five) tablet; 0 refill(s); ELOY; Earliest Fill Date: 06/27/2019 alendronate sodium: alendronate sodium 70 mg tablet; Total Qty: 12 (twelve) Each; 0 refill(s); ELOY; amlodipine besylate: amlodipine besylate 10 mg tablet; TAKE 1 TABLET TAKE 1 TABLET BY MOUTH DAILY; Total Qty: 90 (ninety) Each; 0 refill(s); ELOY; atorvastatin calcium: atorvastatin calcium 20 mg tablet; TAKE 1 TABLET TAKE 1 TABLET BY MOUTH DAILY; Total Qty: 90 (ninety) Each; 0 refill(s); ELOY; bupropion HCl: bupropion HCl 300 mg Tablet, Extended Release 24 hr; TAKE 1 TABLET TAKE 1 TABLET BY MOUTH EVERY MORNING; Total Qty: 90 (ninety) Each; 0 refill(s); ELOY; Problem List: Hemochromatosis, unspecified (status Active) Unspecified thoracic, thoracolumbar and lumbosacral intervertebral disc disorder (status Active) Sprain of ligaments of cervical spine, initial encounter (status Active) Essential (primary) hypertension (status Active) Surgeries: : unspecified shoulder: unspecified foot: unspecified Social History: Tobacco Use: denies Alcohol: denies Street / Unprescribed Drugs: denies Vitals: 06:01 PM (12/21/2024)Temperature: 96.9 ?F, Pulse: 78 BPM, BP: 141/70, Respirations: 18/min, O2 Saturation: 97%, O2 Delivery: RAFirst entered 12/21/2024 18:01 by Annamaria Hugo Physical Exam: The following exam elements were documented to be normal: Psychiatric: oriented and alert. On inspection patient appears well, no acute distress, there is mild puffiness of the right lower lid with appears to be superficial fluid edema that has pooled in the lower eyelid sac. It is not hot. It is not indurated or tender. There is significant injection of the palpable conjunctiva of the right lower lid without focal hordeolum. There is tenderness over the central lower lid Diagnoses: Unspecified blepharitis right lower eyelid (H01.002) Medication Orders: Prescribed: erythromycin 5 mg/gram (0.5 %) ointment; Take 0.5 inches (ophthalmic (eye) - affected area) 2 times per day for 10 days; Total Qty: 1 (one) unspecified; 0 refill(s); Substitutions allowed; Earliest Fill Date: 12/21/2024ePrescribed at 6:14 PM on 12/21/2024 by CHRISTINA OrdoñezCPrescript ion sent to [facility] #[id number] (P: [phone] F: [phone]) [address] [place] [address], [place], [place], [phone] Plan: If not feeling better in 3 day(s), please see your primary care physician. If you do not have a primary care physician, please return to this clinic. you were evaluated for the eyelid swelling and redness. I suspect you may be developing a blockage of the pores along the eyelid and potentially developinga stye. Apply warm compresses to the area frequently throughout the day with upward massage to the eyelid. Use the ointment as prescribed. As we discussed if you develop any spreading redness, redness going around your eye, fevers, pain with eye movement, or any other new, concerning symptoms please be reevaluated immediately Visit discharged at 12/21/2024 6:16:22 PM by Jerod Raymond PA-C Signed electronically by Jerod Raymond PA-C on 12/21/2024 6:16:22 PM IMAGING NOTES * None LABORATORY REPORT NARRATIVE NOTES * None PATHOLOGY REPORT NARRATIVE NOTES * None PROGRESS NOTES * None
== END 2025-01-12 11:02 | disposition home or self-care (01) ==
PROVIDERS: PCP Internal Medicine; Visit Provider Internal Medicine Rheumatology
DX: M31.6 Other giant cell arteritis (principal)
CPT/HCPCS: 99214; G2211

== ENCOUNTER → 2025-01-12 10:24 | Outpatient (BNVA) | payer MEDICARE, SELFPAY | PROVIDERS: PCP Internal Medicine; Visit Provider Internal Medicine Rheumatology | DX: M31.6 Other giant cell arteritis (principal) | CPT/HCPCS: 99212 ==

== ENCOUNTER 2025-04-13 09:43 | Outpatient (AMB) | payer MEDICARE, SELFPAY ==
--- NOTE | 2025-04-13 09:45 | MHC.OFFVIS ---
Vital Signs 04/13/25 09:51 Height 5 ft 4 in Weight 160 lb 0.889 oz BMI 27.5 BP 140/64 H Blood Pressure Location Rt brachial Position Sitting Pulse 81 Pulse Source Pulse Oximeter Pulse Oximetry (%) 96 Oxygen Delivery Method Room Air Intake Visit Reasons: follow up Intake Note: Pt is present today for a follow up for OA. Accompanied by: Self / Same As Patient Allergies codeine Allergy (Mild, Verified 04/13/25 09:45) Vomiting environmental allergies Allergy (Mild, Verified 04/13/25 09:45) swelling, watery eyes, swelling lips tetracycline Allergy (Mild, Verified 04/13/25 09:45) Unknown gabapentin Adverse Reaction (Intermediate, Verified 04/13/25 09:45) crazy, sick HPI HPI follow up: Details: She has gained weight. On prednisone 10mg daily. No headaches. Intermittent jaw tightness and soreness with chewing. Once a month. Occurs when chewing meat. History of clenching jaw with grinding in the past requiring mouth guard. She follows up with dentist regularly and reports that dentist has not noticed her grinding her teeth recently. Pain in hands improved on prednisone. She recently had labs 04/09/2025, which reveal normal inflammatory markers, complete metabolic panel and CBC-reviewed labs on patient portal on phone. Physical Exam Vital Signs: Last Vital Signs Pulse 81 04/13/25 09:51 BP 140/64 H 04/13/25 09:51 Pulse Ox 96 04/13/25 09:51 Oxygen Delivery Method Room Air 04/13/25 09:51 BMI result Body Mass Index 27.5 Const Other: General: Comfortable CVS: RRR Respiratory: clear to auscultation bilaterally. Good respiratory effort Skin: No lesions seen MSK: No tenderness of bilateral temples. +2 radial pulse bilaterally. +R temporal pulse. No temporal or jaw tenderness on palpation. No tenderness of any joint. No synovitis of any joints. [place] nodes present. She has weak irrigator gravity flow. Normal range of motion of upper extremity and lower extremity. Assessment & Plan Assessment & Plan (1) Giant cell arteritis: Comment: Doing well on tapering prednisone. Rheumatology history: Patient has biopsy confirmed GCA (L bx 09/2020) treated with prednisone (09/2020-10/2023) and Actemra (08/2021-06/2024), relapsed 09/2024 presenting with recurrent symptoms of headaches nausea, vomiting, weight loss as patient had on initial presentation with elevated inflammatory arthritis. Her inflammatory [facility] normal with ESR 0.5 mg/dL and CRP 1 mm/hr while she was on Actemra and in remission. Actemra was discontinued at [facility]. She relapsed (weight loss, headache, nausea). Resumed Actemra and prednisone 20 mg daily with resolution of symptoms 09/2024. Inflammatory markers normalized December 2024. Code(s): M31.6 - Other giant cell arteritis Category: Medical Plan: Decrease prednisone 1 mg per month until you are done Continue Actemra 162 mg subcutaneous injection weekly Labs for drug monitoring on high-risk medication up-to-date from 03/2025. Requesting lab report. She will need fasting lipid panel next visit.. Return to clinic in 3 months Orders: Orders Alanine Aminotransferase Today M31.6 - Other giant cell arteritis, M32.9 - Systemic lupus erythematosus, unspecified, M85.80 - Other specified disorders of bone density and structure, unspecified site Aspartate Amino Transferase Today M31.6 - Other giant cell arteritis, M32.9 - Systemic lupus erythematosus, unspecified, M85.80 - Other specified disorders of bone density and structure, unspecified site C Reactive Protein Today M31.6 - Other giant cell arteritis, M32.9 - Systemic lupus erythematosus, unspecified, M85.80 - Other specified disorders of bone density and structure, unspecified site Erythrocyte Sedimentation Rate Today M31.6 - Other giant cell arteritis, M32.9 - Systemic lupus erythematosus, unspecified, M85.80 - Other specified disorders of bone density and structure, unspecified site Complete Blood Count Man Dif Today M31.6 - Other giant cell arteritis, M32.9 - Systemic lupus erythematosus, unspecified, M85.80 - Other specified disorders of bone density and structure, unspecified site Creatinine Today M31.6 - Other giant cell arteritis, M32.9 - Systemic lupus erythematosus, unspecified, M85.80 - Other specified disorders of bone density and structure, unspecified site Absolute Neutrophil Count Today M31.6 - Other giant cell arteritis, M85.80 - Other specified disorders of bone density and structure, unspecified site Medications: New calcium citrate 250 mg PO BID 90 tabs 4RF prednisone Take 9 tablets daily 1 month, 8 tablets daily 1 month, 7 tablets daily 1 month. Take prednisone with food. 1 mg PO DIRECTED 720 tabs 0RF Refilled Actemra ACTPen (tocilizumab) 162 mg (0.9 mL) subcut QWEEK 3.6 ea 2RF NS Discontinued calcium carbonate Take 1 tablet twice a day Discontinued Reason: Doctor's Order 600 mg PO BID 180 tabs 3RF Coding Level of Care Code Est Pt Level 4 (45482) Complex EM visit Add On G2211 Diagnoses Giant cell arteritis M31.6
[2025-04-13 09:51] VITALS: BP 140/64; PULSE 81; O2SAT 96; BMI 27.5
--- OUTSIDE RECORDS SUMMARY | 2025-04-13 10:44 | XMS_ITS ---
Author Name [facility] Organization Unknown Care Team Organization Name Specialty Phone Email Start Date End [facility] NO PCP Primary Care 10/12/2024
--- OUTSIDE RECORDS SUMMARY | 2025-04-13 10:44 | XMS_ITS | Clinical Summary ---
Author Organization [facility] Address [address] [place] [address] Care Team Providers Care Financial Services Manager Name Role Phone Verito Rutherford MD Primary Care Provider [phone] Allergies Active Allergy Reactions Criticality Noted Date [...] age to complete this topic Care Teams Financial Services Manager Relationship Specialty Start Date End Date Verito Rutherford MD [address] [place] [address] [place] [id number] PCP - General Jockey Room Custodian 05/13/18
--- OUTSIDE RECORDS SUMMARY | 2025-04-13 10:44 | XMS_ITS | Clinical Summary ---
Author Organization [address] [place] [address] [place] [phone] Phone Care Team Providers Care Dragline Operator Helper Name Role Phone Riley Martinez MD Primary Care Provide r Allergies Active Allergy Reactions Criticality Noted Date Comments Gabapentin 06/21/2023 Tetracycline 06/21/2023 Medications pantoprazole (PROTONIX) 40 mg EC tabletIndications :Gastroesophageal reflux disease with esophagitis, unspecified whether hemorrhage Take 1 tablet (40 mg total) by mouth 2 (two) times a day. 180 tablet 3 10/28/2024 Active amLODIPine (NORVASC) 10 mg tablet TAKE 1 TABLET BY MOUTH DAILY 90 tablet 1 11/23/2024 Active MAGNESIUM CARBONATE ORAL Take by mouth. [...] time each day. 90 each 3 12/30/2024 Active Active Problems Problem Noted Date Diagnosed Date Coronary artery disease invo lving walk[place] coronary artery of [place] heart without angina pectoris 12/30/2024 Assessment & [...] will increase atorvastatin to 20 mg daily. Surgical History Surgery Date Site/Laterality Comments OTHER [...] DX:Fi brocystic breast disease Giant cell arteritis (CMS/HC C V24, CMS/HCC V28) DX:Giant cell arteritis (HCC ) H/O anaphylactic shock DX:H/O an aphylactic shock [...] deviation Sciatica DX:Sciatica Scoliosis DX:Scoliosis Temporal arteritis (CMS/HCC V24, CMS/HCC V28) DX:Temporal arteritis (HCC) Urinary frequency DX:Urinary edsi quency Chest pain 06/20/2023 Last Assessment & [...] - Risk 3-dose series) 2014 RSV Immunization Adult Patients (1 - Risk 60-74 years 1-dose series) [...] 10/24/2022 Hypertension/CHF/CAD Annual BMP Blood Test 12/24/2023 COVID-19 Vaccine (7 - Moderna risk season) 2025 10/06/2024, 11/09/2022, 04/27/2022, Additional history exists Cholesterol Screening (Lipid Panel) 04/05/2030 04/05/2025, 01/05/2025, 06/21/2023 Influenza Vaccine Completed 09/17/2024, , 08/30/2022, Additional history exists HIB Vaccines Aged Out [...] age to complete this topic Meningococcal B Vaccine Aged Out No l onger eligible based on patient's age to complete this topic RSV Immunization Patients Under 20 months Aged Out No longer eligible based on patient's age to complete this topic Varicella Vaccines Aged Out No longer eligible based on patient's age to complete this topic Procedures Procedure Name Priority Date/Time Associated Diagnosis Comments LIPID PANEL Routine 04/05/2025 9:12 AM EDT Coronary artery disease involving walk[place] coronary artery of [place] heart without angina pectoris Pure hypercholesterolemia from Last 3 Months Results * Lipid panel (04/05/2025 9:12 AM EDT) Cholesterol Total 194 100 - 199 mg/dL [facility] Triglycerides 127 0 - 149 mg/dL [facility] HDL Cholesterol 75 >39 mg/dL [facility] VLDL Cholesterol Calculated 22 5 - 40 mg/dL [facility] LDL Chol Calc ([facility]) 97 0 - 99 mg/dL [facility] 1 Blood Venous blood specimen / Unknown 04/05/2025 9:12 AM EDT 04/05/2025 Narrative [facility] - 04/06/2025 1:06 AM EDT Performed at: ??01 - [facility] [address] ??[id number] Remediation Project Engineer: Demetrice Jimenez MD, Phone: ??[phone] us Rosemarie Paris NP LAB BLOOD ORDERABLES Final Resu lt [facility] 1 from Last 3 Months Insurance [employer]UE [employer] - [place] MEDICARE ADVANTAGE Care Teams Dragline Operator Helper Relationship Specialty Start Date End Date Riley Martinez MD [address] [place], [place] [address] PCP - General 09/18/24
--- OUTSIDE RECORDS SUMMARY | 2025-04-13 10:44 | XMS_ITS | Clinical Summary ---
Author Organization [facility] Address [address] [place] [id number] Care Team Providers Care Firer Powerhouse Name Role Phone Pcp, No Primary Care Provider Unavailabl e Social History Tobacco Use Types Packs/Day Years Used Date Smoking Tobacco: Never Assessed Comments Unknown Sex and Gender Information Value Date Recorded Sex Assigned at Female 12/11/2024 3:42 PM EST Legal Sex Female 3:05 PM EST Gender Identity Female 12/11/2024 3:42 PM EST Sexual Orientation Not on file Plan of Treatment Upcoming Encounters Date Type Department Care Team (Late st Contact Info) Description 05/14/2025 10:45 AM EDT Office Visit [address] [place] [phone] Verito Rutherford MD [address] [place] [address] Health Maintenance Due Date Last Done Comments Hepatitis C Virus Screening 1954 DTaP/Tdap/Td Vaccines (1 - Tdap) 1973 Pneumococcal Vaccines 50+ (1 of 2 - PCV) 1973 Mammogram 1994 Colonoscopy 1999 Zoster (Shingles) Vaccine (1 of 2) 2004 RSV Vaccine 60 years and older and Patients (1 - Risk 60-74 years 1-dose series) 2014 DXA Bone Density (Females,Ages 65 and older) 2019 COVID-19 Vaccine ( season) 2024 04/27/2022, 12/04/2021, 04/17/2021, Additional history exists Influenza Vaccine 06/25/2025 09/28/2023, , 08/09/2021, Additional history exists Hepatitis B Vaccines Aged Out No long er eligible based on patient's age to complete this topic Insurance [facility] OUT OF STATE - PPO BLUE CROSS [place] MEDICARE OUT OF NETWORK Care Teams Firer Powerhouse Relationship Specialty Start Date End Date Pcp, No PCP - General General Medicine 10/12/24
--- OUTSIDE RECORDS SUMMARY | 2025-04-13 10:44 | XMS_ITS | Clinical Summary ---
Author Organization [email or web address] Address [address] [facility] [address] [place] [address] Care Team Providers Care Scalping Machine Operator Name Role Phone Unavailable Primary Care Provider Unavailabl e Social History Tobacco Use Types Packs/Day Years Used Date Smoking Tobacco: Never Assessed Comments Unknown Sex and Gender Information Value Date Recorded Sex Assigned at Female 09/24/2022 10:25 AM EDT Legal Sex Female 10:25 AM EDT Gender Identity Not on file Sexual Orientation Not on file Plan of Treatment Health Maintenance Due Date Last Done Comments CT Colonography 1954 Colonoscopy 1954 Colorectal Cancer Screening 1954 Depression Screening 1954 FIT DNA/Cologuard 1954 FIT 1954 FOBT 1954 Sigmoidoscopy 1954 Alcohol/Substance Use Screening 1966 Tobacco Screening 1966 DTaP/Tdap/Td Vaccines (1 - Tdap) 1973 Mammogram 1994 Pneumococcal Vaccine: 50+ Ye ars (1 of 1 - PCV) 2004 Zoster Vaccines (1 of 2) 2004 COVID-19 Vaccine ( - 2023-2 5 season) 2024 Influenza Vaccine (#1) 2024 RSV Patients and Pa tients Aged 60 years or older (1 - 1-dose 75+ series) 2029 HIB Vaccines Aged Out No longer eligi ble based on patient's age to complete this topic HPV Vaccines Aged Out No longer eligi ble based on patient's age to complete this topic Hepatitis A Vaccines Aged Out No long er eligible based on patient's age to complete this topic Hepatitis B Vaccines Aged Out No long er eligible based on patient's age to complete this topic IPV Vaccines Aged Out No longer eligi ble based on patient's age to complete this topic Meningococcal B Vaccine Aged Out No l onger eligible based on patient's age to complete this topic Meningococcal Vaccine Aged Out No clifford sandoval eligible based on patient's age to complete this topic RSV under 20 months Aged Out No longe r eligible based on patient's age to complete this topic Rotavirus Vaccines Aged Out No longer eligible based on patient's age to complete this topic
--- OUTSIDE RECORDS SUMMARY | 2025-04-13 10:44 | XMS_ITS | Encounter Summary ---
Author Organization [employer] Address [address] [facility] [address] [place] [address] Care Team Providers Care Air Press Operator Name Role Phone Unavailable Primary Care Provider Unavailabl e Encounter Details Date Type Department Care Team (Latest Contact Info) Description 01/06/2019 Abstract [facility] CONVERSION[facility] Dental, Provider, DDS Social History Tobacco Use Types Packs/Day Years Used Date Smoking Tobacco: Never Assessed Comments Unknown Sex and Gender Information Value Date Recorded Sex Assigned at Female 09/24/2022 10:25 AM EDT Legal Sex Female 10:25 AM EDT Gender Identity Not on file Sexual Orientation Not on file documented as of this encounter Plan of Treatment Not on file documented as of this encounter Visit Diagnoses Not on filedocumented in this encounter
== END 2025-04-13 10:33 | disposition home or self-care (01) ==
LOC: HO.RHES 09:44
PROVIDERS: PCP Internal Medicine; Visit Provider Internal Medicine Rheumatology
DX: M31.6 Other giant cell arteritis (principal)
CPT/HCPCS: 99214; G2211

== ENCOUNTER → 2025-04-13 09:43 | Outpatient (BNVA) | payer MEDICARE, SELFPAY | PROVIDERS: PCP Internal Medicine; Visit Provider Internal Medicine Rheumatology | DX: M31.6 Other giant cell arteritis (principal); M32.9 Systemic lupus erythematosus, unspecified; M85.80 Other specified disorders of bone density and structure, unspecified site | CPT/HCPCS: 99212 ==

== ENCOUNTER 2025-07-20 12:12 | Outpatient (AMB) | payer MEDICARE, SELFPAY ==
--- OUTSIDE RECORDS SUMMARY | 2025-07-20 08:00 | XMS_ITS | Encounter Summary ---
Author Organization [facility] Address [address] [place] [address] Care Team Providers Care Ham Doctor Name Role Phone Riley Martinez MD Primary Care Provide r Reason for Visit * Reason Comments Abnormal bowel movements Encounter Details Date Type Department Care Team (Late st Contact Info) Description 07/20/2025 8:00 AM EDT Office Visit Gastroenterology - [address] [facility] [address] [place] [id number] Pillo Vasquez MD 229 [facility] [address] [place] [address] Change in bowel function (Primary Dx); Hematochezia; Personal history of adenomatous and serrated colon polyps Social History Tobacco Use Types Packs/Day Years Used Date Smoking Tobacco: Every Day Cigarettes Smokeless Tobacco: Never Alcohol Use Standard Drinks/Week Comments Yes 3 [...] Sign Reading Time Taken Comments Blood Pressure - - Pulse - - Temperature - - Respiratory Rate - - Oxygen Saturation - - Inhaled Oxygen Concentration - - Weight 72.9 kg (160 lb 12.8 oz) 07/20/2025 7:56 AM EDT Height 162.6 cm (5' 4 ) 07/20/2025 7:56 AM EDT Body Mass Index 27.6 07/20/2025 7:56 AM EDT documented in this encounter Progress Notes * Pillo Vasquez MD - 07/20/2025 8:00 AM EDT CHIEF COMPLAINT: Bowel changes HPI: Jolene Senior is a 69 y.o. old female who now presents to the gastroenterology department today for a follow up of bowel problems starting about 5-6 months ago. BM's are now softer and more frequent, with urgency. Went from one a day to 4 or 5. Not exactly loose but some mucus. Having a sharp periumbilical pain, brief (minutes), severe, unrelated to BM's, not daily. Also with a bit of leakage and incomplete evacuation. There has been BRB on toilet paaper, not clearly in stool. No new meds, antibiotics, diet change, supplements, travel,fever, rash, wt loss, excessive milk, orartificial sweeteners. Rarely with nocturnal symptoms She has been under a great deal of stress and admits to a lot of anxiety, she does think that this has correlated with her symptoms. ROS: GENERAL: No malaise, fatigue, unexpected weight loss, or fever HEENT: No changes in hearing or vision, nose bleeds or swallowing problems NECK: No lumps, pain, or significant neck swelling RESPIRATORY: No cough, wheezing or shortness of breath CARDIOVASCULAR: No chest pain, leg swelling or palpitations GI: As above, otherwise negative. MUSCULOSKELETAL: No joint pain or swelling, back pain, or muscle pain. SKIN: No lesions, rash or itching NEURO: No focal; weakness or numbness. No headaches. The remainder of the review of systems is reviewed and negative. Problems: Patient Active Problem List Diagnosis Date Noted AC (acromioclavicular) joint arthritis 07/20/2025 Adjustment disorder with anxiety 07/20/2025 Anxiety 07/20/2025 Atypical squamous cells of undetermined significance (ASCUS) on Papanicolaou smear of cervix 07/20/2025 Rosado esophagus 07/20/2025 Cervicalgia 07/20/2025 Constipation 07/20/2025 Depression 07/20/2025 Deviated nasal septum 07/20/2025 Disorder of iron metabolism 07/20/2025 Diverticulosis of sigmoid colon 07/20/2025 Erythema nodosum 07/20/2025 Fibrocystic breast disease 07/20/2025 Giant cell arteritis (CMS/HCC V24, CMS/HCC V28) 07/20/2025 Hiatal hernia 07/20/2025 Hoarseness 07/20/2025 IFG (impaired fasting glucose) 07/20/2025 IPMN (intraductal papillary mucinous neoplasm) 07/20/2025 Liver cyst 07/20/2025 Lower back pain 07/20/2025 Lumbar radiculopathy 07/20/2025 Macrocytic 07/20/2025 OA (osteoarthritis) of knee 07/20/2025 Pancreatic cyst 07/20/2025 Polyp of colon 07/20/2025 Psoriasis 07/20/2025 Restless legs syndrome 07/20/2025 Sciatica 07/20/2025 Disorder of rotator cuff 07/20/2025 Scoliosis 07/20/2025 Somatoform pain disorder 07/20/2025 Temporal arteritis (CMS/HCC V24, CMS/HCC V28) 07/20/2025 Urinary frequency 07/20/2025 Vaginal dryness 07/20/2025 Coronary artery disease involving levelock coronary artery of levelock heart without angina pectoris 12/30/2024 Hypertension 06/21/[address] 06/20/2023 HLD (hyperlipidemia) 06/20/2023 Surgical History: Past Surgical History: Procedure Laterality Date SECTION, LOW TRANSVERSE 1993 COLONOSCOPY 08/2024 LIVER BIOPSY 2019? OTHER SURGICAL HISTORY PROCEDURE: HISTORY OTHER; COMMENT: cervix cryosurgery cataract OTHER SURGICAL HISTORY PROCEDURE: HISTORY OTHER; COMMENT: EGD OTHER SURGICAL HISTORY PROCEDURE: HISTORY OTHER; COMMENT: ARTHROSCOPIC REPAIR OF ROTATOR CUFF Umbilical hernia repair approx 2022 Social History: Social History Tobacco Use Smoking status: Every Day Types: Cigarettes Smokeless tobacco: Never Substance Use Topics Alcohol use: Yes Alcohol/week: 3.0 standard drinks of alcohol Types: 3 Glasses of wine per week Family History: Family History Problem Relation Name Age of Onset Hypertension Mother Cari Heard Colon cancer Paternal Grandfather Joshua Heard Sr Diabetes Sister Elise Heard Stroke Sister Elise Heard Hemochromatosis Sister Lily Gar Hemochromatosis Brother Manny Heard Irritable bowel syndrome Son Medications: Outpatient Medications Marked as Taking for the 07/20/25 encounter (Office Visit) with Pillo Vasquez MD Medication Sig Dispense Refill albuterol sulfate (ProAir RespiClick) 90 mcg/actuation aerosol powdr breath activated Inhale into the lungs. alendronate (FOSAMAX) 70 mg tablet Take 1 tablet (70 mg total) by mouth every 7 (seven) days. amLODIPine (NORVASC) 10 mg tablet TAKE 1 TABLET BY MOUTH DAILY 90 tablet 1 aspirin 81 mg chewable tablet Chew 1 tablet (81 mg total) 1 (one) time each day. atorvastatin (LIPITOR) 40 mg tablet Take 1 tablet (40 mg total) by mouth 1 (one) time each day. 90 each 3 buPROPion XL (WELLBUTRIN XL) 300 mg 24 hr tablet Take 1 tablet (300 mg total) by mouth 1 (one) timeeach day. calcium citrate (CALCITRATE) 1200 mg (250 mg elemental calcium) tablet Take 1 tablet (1,200 mg total) by mouth 2 (two) times a day. cetirizine (ZyrTEC) 10 mg tablet Take 1 tablet (10 mg total) by mouth 1 (one) time each day. cholecalciferol (VITAMIN D-3) 5,000 Units tablet Take by mouth. estradioL (ESTRACE) 0.01 % (0.1 mg/gram) vaginal cream INSERT 1 GRAM VAGINALLY EVERY NIGHT AT BEDTIME FOR 14 DAYS THEN USE VAGINALLY 2 TIMES A WEEK MAGNESIUM CARBONATE ORAL Take by mouth. methylphenidate (RITALIN) 20 mg tablet Take 1 tablet (20 mg total) by mouth 1 (one) time each day. pantoprazole (PROTONIX) 40 mg EC tablet Take 1 tablet (40 mg total) by mouth 2 (two) times a day. 180 tablet 3 predniSONE (DELTASONE) 20 mg tablet Take 6 mg by mouth 1 (one) time each day. tiZANidine (ZANAFLEX) 2 mg tablet Take 1 tablet (2 mg total) by mouth every 6 (six) hours if needed. tocilizumab (ACTEMRA) subcutaneous injection Inject into the skin. valACYclovir (VALTREX) 1 gram tablet if needed. ALLERGIES: Allergies Allergen Reactions Codeine Anxiety, Psychiatric, Nausea Only and Nausea And Vomiting Gabapentin Other Other Reaction(s): GRASS/CATS Hydroperoxides of Linalool and hydroperoxides of the Limonene per [facility] patch testing October 2019. Tetanus Toxoid Other Reaction(s): ? serum human or animal that I reacted to Tetracycline PHYSICAL EXAM: Visit Vitals Ht 1.626 m (64 ) Wt 72.9 kg (160 lb 12.8 oz) BMI 27.60 kg/m?? Smoking Status Every Day BSA 1.78 m?? APPEARANCE: Alert and in no acute distress EYES: Conjunctiva and sclera normal. MOUTH/THROAT: no erythema or exudates NECK: Supple, no adenopathy HEART: Regular rate and rhythm with normal S1 and S2, no murmurs appreciated LUNG: clear to auscultation LYMPH NODES: grossly normal ABDOMEN: Flat, no scars. Bowel sounds present, no bruits. Soft and non tender, without mass, ascites, guarding, or rebound. No hepatomegaly. RECTAL: Exam deferred. EXTREMITIES: Extremities warm and well perfused. No edema SKIN: Skin color, texture, turgor normal. NEURO: Awake, alert and oriented x 3.Upper and lower extremity Strength is grossly normal. LABS: No results found for: WBC , HGB , HCT , MCV , PLT No results found for: NA , K , CL , CO2 , BUN , CREATININE , CALCIUM , PROT , BILITOT , ALKPHOS , ALT , AST , GLUCOSE IMAGING: Nuclear Stress With Exercise, Regadenoson, Or Dobutamine Per Protocol IMPRESSION: [facility] [address] [place] [address], [id number], [place] [address] TEL: FAX: Name: Jolene Senior Date of exam: 07/18/23 : 1955 Gender: Female Ordering provider: Taylor Virk MD PCP: Lena Villalta Blood pressure (!) 140/60, pulse 69, height 5' 4 (1.626 m), weight 147 lb (66.7 kg), SpO2 97 %. Body mass index is 25.23 kg/m??. TEST TYPE: Exercise Nuclear Stress Test Performed by: Rosanne Dooley NP INDICATION/HISTORY: Chest pain with exertion which prompted recent ER visit. History of coronary artery calcification seen on CT. CARDIAC RISK FACTORS: Hypertension, Dyslipidemia, and Tobacco use - Active PRIOR CARDIAC EVENTS: None TECHNIQUE: One minute prior to the cessation of treadmill exercise on a standard Benja Protocol, patient received 32.1mCi of IV Tc 99 Tetrofosmin for stress SPECT imaging with gated SPECT acquisition at 30 min post exercise. Rest SPECT imaging with 10.5mCi of IV.Tc 99m Tetrofosmin was performed. Computerized reconstruction of the images was performed for analysis. CT imaging was performed for attenuation correction purposes only STRESS TEST: No beta blockers/calcium channel blockers/nitrates. Last amlodipine 07/17/23 PM. The patient exercised for 7 minutes and 01 seconds on a Standard Benja protocol achieving a peak heart rate of 134 BPM which is 88 % MPHR for the patient's age. Symptoms: None Functional Capacity: Good for age and gender ( 10.10 METS). Hemodynamic response: Physiologic Resting BP: 140/60 with a HR of: 69. Maximum BP: 177/80 with HR of: 134. O2 sat: 97% on RA Baseline ECG: Normal sinus rhythm Stress EC mm ST depressions noted in leads II, III, aVF, and V6. V4-V5 with 1-[address] depressions with upsloping. Arrhythmias: Rare isolated PVCs and rare isolated PACs Test terminated due to: Fatigue Electronically Signed By: Rosanne Dooley NP 07/18/2023 11:19 AM SCAN FINDINGS AND IMPRESSION: STRESS=70% REST=65% TID=1.10 Myocardial perfusion imaging shows no fixed or reversible defects at rest or stress. Gated SPECT imaging shows normal regional wall motion and thickening with a normal LVEF calculated be 65%. Conclusions: Normal perfusion. There is no evidence of ischemia or infarct by myocardial perfusion imaging after attenuation correction at this adequate level of stress. Gated SPECT imaging shows normal LVEF calculated 65%. Heavy LAD calcification was noted on CT attenuation images. TID ratio is not significantly elevated. ST depressions noted during testing in the setting of an abnormal baseline. Good exercise capacity for age. Electronically Signed By: HOPE BENNETT MD 07/18/2023 5:17 PM IMPRESSION: Change in bowels with increased frequency, urgency, incomplete evacuation, and occasional soiling. There is also sharp but rare and brief periumbilical pain, unrelated to the bowel issue. There has been some mild hematochezia, but that is limited to the toilet paper, and she had an essentially negative colonoscopy except for a few small polyps just about 9 or 10 months ago. I suspect this is irritable bowel syndrome triggered by stress. Less likely, this could be an infection, colitis, bacterial overgrowth/SIBO, or any number of etiologies that could alter the bowels. However, the association with stress and the lack of warning symptoms other than minimal rectal bleeding would go for irritable bowel syndrome. PLAN: 1. We reviewed the differential diagnosis at length, and I did reassured her that IBS was quite likely. She agrees. 2. Will rule out underlying pathology by getting a CBC, CMP, CRP, and a fecal calprotectin. With her formed stool, stool studies otherwise are not can be helpful and will probably be rejected by the lab. 3. We discussed starting empiric therapy such as dicyclomine, but she declined. She would rather just keep an eye on this and contact me if the symptoms progress or change. 4. Follow-up as needed. She will call if there is a change or progression of symptoms. We will alsolet her know about her lab results. Pillo Vasquez MD Board Certified, Gastroenterology Gastroenterology and Hepatology Practice [facility] [email or web address] W [phone] [place] [id number] documented in this encounter Plan of Treatment Pending Results Name Type Priority Associated Diagnoses Date /Time Tissue transglutaminase, IgA Lab Routine Change in bowel function 07/20/2025 8:30 AM EDT Scheduled Orders Name Type Priority Associated Diagnoses Orde r Schedule Calprotectin, stool Lab Routine Change in bowel function 1 Occurrences starting 07/20/2025 until 07/20/2026 Tissue transglutaminase, IgA Lab Routine Change in bowel function 1 Occurrences starting 07/20/2025 until 07/20/2026 documented as of this encounter Results * Immunoglobulin IgA (07/20/2025 8:30 AM EDT) IgA 231 61 - 348 mg/dL LAB CHEMISTRY METHOD 07/20/2025 11:45 AM EDT [facility] Blood Venous blood specimen / Unknown Venipuncture / Unknown 07/20/2025 8:30 AM EDT 07/20/2025 9:51 AM EDT Pillo Vasquez MD LAB BLOOD ORDERABLES Final Result Performing Organization Address [facility]/ZIP Co de Phone Number [facility] [address] [place] [address], [place] [phone] * C-reactive protein (07/20/2025 8:30 AM EDT) Pathologist [facility] C-Reactive Protein <0.29 <=0.50 mg/dL LAB CHEMISTRY METHOD 07/20/2025 11:45 AM EDT [facility] Blood Venous blood specimen / Unknown Venipuncture / Unknown 07/20/2025 8:30 AM EDT 07/20/2025 9:51 AM EDT Pillo Vasquez MD LAB BLOOD ORDERABLES Final Result Performing Organization Address City/[facility]/ZIP Co de Phone Number [facility] [address] [place] [address], [place] [phone] * Comprehensive metabolic panel (07/20/2025 8:30 AM EDT) [facility] Sodium 141 133 - 145 mmol/L LAB CHEMISTRY METHOD 07/20/2025 11:45 AM EDT [facility] Potassium 3.8 3.5 - 5.5 mmol/L LAB CHEMISTRY METHOD 07/20/2025 11:45 AM EDT [facility] Chloride 107 96 - 110 mmol/L LAB CHEMISTRY METHOD 07/20/2025 11:45 AM EDT [facility] CO2 27 21 - 32 mmol/L LAB CHEMISTRY METHOD 07/20/2025 11:45 AM EDT [facility] Anion Gap 7 3 - 11 LAB CHEMISTRY METHOD 07/20/2025 11:45 AM [facility] Glucose 91 70 - 100 mg/dL LAB CHEMISTRY METHOD 07/20/2025 11:45 AM [facility] BUN 16 5 - 25 mg/dL LAB CHEMISTRY METHOD 07/20/2025 11:45 AM [facility] Creatinine 0.90 0.50 - 1.10 mg/dL LAB CHEMISTRY METHOD 07/20/2025 11:45 AM [facility] eGFR 69 >=60 mL/min/1. 73m2 LAB CHEMISTRY METHOD 07/20/2025 11:45 AM [facility] Comment:Calculation based on the Chronic Kidney Disease Epidemiology Collaboration (CKD-EPI) equation refit without adjustment for race. BUN/Creatinine Ratio 17.8 LAB CHEMISTRY METHOD 07/20/2025 11:45 AM [facility] Calcium 8.9 8.5 - 10.5 mg/dL LAB CHEMISTRY METHOD 07/20/2025 11:45 AM [facility] AST (SGOT) 21 10 - 42 unit/L LAB CHEMISTRY METHOD 07/20/2025 11:45 AM [facility] ALT (SGPT) 29 10 - 60 unit/L LAB CHEMISTRY METHOD 07/20/2025 11:45 AM [facility] Alkaline Phosphatase 49 42 - 121 unit/L LAB CHEMISTRY METHOD 07/20/2025 11:45 AM [facility] Total Protein 6.7 6.0 - 8.0 g/dL LAB CHEMISTRY METHOD 07/20/2025 11:45 AM [facility] Albumin 4.1 3.2 - 5.0 g/dL LAB CHEMISTRY METHOD 07/20/2025 11:45 AM [facility] Total Bilirubin 0.8 0.0 - 1.4 mg/dL LAB CHEMISTRY METHOD 07/20/2025 11:45 AM [facility] Blood Venous blood specimen / Unknown Venipuncture / Unknown 07/20/2025 8:30 AM EDT 07/20/2025 9:51 AM EDT us Pillo Vasquez MD LAB BLOOD ORDERABLES Final Result [facility] [address] [place] [address], documented in this encounter Visit Diagnoses Diagnosis Change in bowel function- Primary Hematochezia Blood in stool Personal history of adenomatous and serrated colon polyps documented in this encounter Historical Medications * This list may reflect changes made after this encounter. estradioL (ESTRACE) 0.01 % (0.1 mg/gram) vaginal cream INSERT 1 GRAM VAGINALLY EVERY NIGHT AT BEDTIME FOR 14 DAYS THEN USE VAGINALLY 2 TIMES A WEEK 06/07/2025 calcium citrate (CALCITRATE) 1200 mg (250 mg elemental calcium) tablet Take 1 tablet (1,200 mg total) by mouth 2 (two) times a day. 07/06/2025 added in this encounter Care Teams Ham Doctor Relationship Specialty Start Date End Date Riley Martinez MD [address] [place] [address] [place] PCP - General 09/18/24 documented as of this encounter
--- NOTE | 2025-07-20 12:17 | MHC.OFFVIS ---
Vital Signs 07/20/25 12:18 Height 5 ft 4 in Weight 159 lb 13.362 oz BMI 27.4 BP 160/80 H Blood Pressure Location Lt brachial Position Sitting Pulse 79 Pulse Source Pulse Oximeter Pulse Oximetry (%) 96 Oxygen Delivery Method Room Air Intake Visit Reasons: 3 month f/u Intake Note: Pt is present today for a follow up for OA. Accompanied by: Self / Same As Patient Allergies codeine Allergy (Mild, Verified 07/20/25 12:18) Vomiting environmental allergies Allergy (Mild, Verified 07/20/25 12:18) swelling, watery eyes, swelling lips tetracycline Allergy (Mild, Verified 07/20/25 12:18) Unknown gabapentin Adverse Reaction (Intermediate, Verified 07/20/25 12:18) crazy, sick HPI HPI 3 month f/u: Details: She had left eye cateract surgery but vision is worse 20/60. Follows with opthalmology and optomotrist. 4th contact lens is irritating to her eye. On prednisone 6mg daily since last saturday. No GCA or PMR symptoms. 2 months ago she had UTI. Hx prolapsed uterus. Physical Exam Vital Signs: Last Vital Signs Pulse 79 07/20/25 12:18 BP 160/80 H 07/20/25 12:18 Pulse Ox 96 07/20/25 12:18 Oxygen Delivery Method Room Air 07/20/25 12:18 BMI result Body Mass Index 27.4 Const Other: General: Comfortable CVS: RRR Respiratory: clear to auscultation bilaterally. Good respiratory effort Skin: No lesions seen MSK: No tenderness of bilateral temples. +2 radial pulse bilaterally. +R temporal pulse. No temporal or jaw tenderness on palpation. No tenderness of any joint. No synovitis of any joints. [place] nodes present. 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 Normal range of motion of upper extremity and lower extremity. Assessment & Plan Assessment & Plan (1) Giant cell arteritis: Comment: Doing well on tapering prednisone. Rheumatology history: Patient has biopsy confirmed GCA (L bx 09/2020) treated with prednisone (09/2020-10/2023) and Actemra (08/2021-06/2024), relapsed 09/2024 presenting with recurrent symptoms of headaches nausea, vomiting, weight loss as patient had on initial presentation with elevated inflammatory arthritis. Her inflammatory [facility] normal with ESR 0.5 mg/dL and CRP 1 mm/hr while she was on Actemra and in remission. Actemra was discontinued at [facility]. She relapsed (weight loss, headache, nausea). Resumed Actemra and prednisone 20 mg daily with resolution of symptoms 09/2024. Inflammatory markers normalized December 2024. Code(s): M31.6 - Other giant cell arteritis Category: Medical Plan: Decrease prednisone 1 mg per month until you are done Continue Actemra 162 mg subcutaneous injection weekly Labs for drug monitoring on high-risk medication reviewed from 07/15/2025. Lipid panel is missing. I have ordered lipid panel for her to do near her home fasting. Return to clinic in 3 months Orders: Orders Lipid Panel Today Z79.899 - Other [facility]current[facility] drug therapy Coding Level of Care Code Est Pt Level 4 (37277) Complex EM visit Add On G2211 Diagnoses Giant cell arteritis M31.6
[2025-07-20 12:18] VITALS: BP 160/80; PULSE 79; O2SAT 96; BMI 27.4
--- OUTSIDE RECORDS SUMMARY | 2025-07-20 13:07 | XMS_ITS | Clinical Summary ---
Author Organization [facility] Address [address] [place] [address] Care Team Providers Care Homicide Investigator Name Role Phone Verito Rutherford MD Primary Care Provider [phone] Allergies Active Allergy Reactions Criticality Noted Date [...] 75 05/22/2018 2:34 PM EDT Temperature 37.3 C (99.1 F) 05/22/2018 2:34 PM EDT Respiratory Rate - - Oxygen Saturation - [...] Screening (DEXA Scan) 2019 Influenza Vaccine (#1) 2025 RSV Adult > 60+ Yrs or Pregn ant (1 - 1-dose 75+ series) 2029 Hepatitis B Vaccines Aged Out No long er eligible based on patient's age to complete this topic RSV Ped < 20 months Aged Out No longe r eligible based on patient's age to complete this topic Care Teams Homicide Investigator Relationship Specialty Start Date End Date Verito Rutherford MD [address] [place] [address] [place] [address] PCP - General Market Researcher 05/13/18
--- OUTSIDE RECORDS SUMMARY | 2025-07-20 13:07 | XMS_ITS ---
[facility] Name [facility] Organization Unknown Encounters Encounter Type Encounter Reason Primary Diagnosis Location Date Ambulatory Unspecified symptoms and signs involving the genitourinary system Unspecified symptoms and signs involving the genitourinary system [facility] 05/25/2025 Ambulatory Persons encountering health services in other specified circumstances Persons encountering health services in other specified circumstances [facility] 05/14/2025 Care Team Organization Name Specialty Phone Email Start Date End Da te C-sam Verito Rutherford Primary Care 05/14/2025 C-[facility] PCP Creative Services Writer 05/14/2025 06/23/2025 C-sam NO PCP Primary Care 10/12/2024
--- OUTSIDE RECORDS SUMMARY | 2025-07-20 13:07 | XMS_ITS | Clinical Summary ---
Author Organization [employer] Address [address] [place] [address] Care Team Providers Care Hot Punch Press Operator Name Role Phone Unavailable Primary [...] 2023-2 5 season) 2024 Influenza Vaccine (#1) 2025 RSV Patients and Pa tients Aged 60 [...]
--- OUTSIDE RECORDS SUMMARY | 2025-07-20 13:07 | XMS_ITS | Encounter Summary ---
Author Organization [employer] Address [address] [facility] [address] [place] [address] Care Team Providers Care Phytopathologist Name Role Phone Unavailable Primary Care Provider Unavailabl e Encounter Details Date Type Department Care Team (Latest Contact Info) Description 01/06/2019 Abstract [facility] CONVERSIONS Dental, Provider, DDS Social History Tobacco [...]
--- OUTSIDE RECORDS SUMMARY | 2025-07-20 13:07 | XMS_ITS | Clinical Summary ---
Author Organization [facility] Address [address] [place] [address] Care Team Providers Care Sole Polisher Name Role Phone Verito Rutherford MD Primary Care Provider [phone] Sabi Rosas PA-C Unavailable [phone] Allergies Active Allergy Reactions Criticality Noted Date Comments Codeine Anxiety,Other (See C omments),Nausea Only,GI Intolerance/Nausea/Vomiting Low 05/22/2018 Gabapentin Delirium/Confusion/P sychosis,Other (See Comments) Medium 06/21/2023 Other Other (See Comments) Low 05/14/2025 Seasonal Tetracycline Other (See Comments) Low 06/21/2023 Medications Magnesium Carbonate, Antacid, (MAGNESIUM CARBONATE PO) Take by mouth. Active albuterol (PROVENTIL HFA; VENTOLIN HFA) 108 (90 Base) MCG/ACT inhaler INHALE 1 PUFF BY MOUTH FOUR TIMES DAILY NEEDED FOR COUGH FOR 7 DAYS 5 Active alendronate (FOSAMAX) 70 MG tablet TAKE 1 TABLET BY MOUTH WEEKLY ON AN EMPTY STOMACH SITTING UPRIGHT FOR 30 MINUTES WITH LOTS OF WATER Active amLODIPine (NORVASC) 10 MG tablet Take 1 tablet (10 mg total) by mouth. Active aspirin 81 MG chewable tablet Chew 1 tablet (81 mg total). Active atorvastatin (LIPITOR) 40 MG tablet Take 1 tablet (40 mg total) by mouth daily. 5 Active buPROPion (WELLBUTRIN XL) 300 MG 24 hr tablet Take 1 tablet (300 mg total) by mouth every morning. Active Calcium Citrate 250 MG Tab 1 tablet by Mouth/Oral Cavity route every 12 hours. 5 Active cholecalciferol (VITAMIN D3) 125 MCG (5000 UT) tablet Take by mouth. Active cetirizine (ZyrTEC) 10 MG tablet Take 1 tablet (10 mg total) by mouth daily. Active methylphenidate (RITALIN) 20 MG tablet Take 1 tablet (20 mg total) by mouth daily. Active PANTOprazole (PROTONIX) 40 MG EC tablet Take 1 tablet (40 mg total) by mouth 2 times a day. Active predniSONE (DELTASONE) 1 MG tablet 9 tablets (9 mg total). Reports now taking 8 mg 5 Active tiZANidine (ZANAFLEX) 4 MG tablet Take 1 tablet (4 mg total) by mouth every 6 (six) hours. Active Actemra ACTPen 162 MG/0.9ML subcutaneous auto-injector once a week. 5 Active traMADol (ULTRAM) 50 MG tablet 1 tablet (50 mg total) by Mouth/Oral Cavity route 4 (four) times a day. 5 Active valACYclovir (VALTREX) 1000 MG tablet TAKE 2 TABLETS BY MOUTH TWICE DAILY FOR 1 DAY TAKE FOR 1 DAY FOR OUT BREAKS Active Encounters Date Type Department Care Team Description 05/29/2025 Telephone [facility]ly [facility] [address] [phone] Sabi Rosas PA-C 05/29/2025 Orders Only [address] [phone] Sabi Rosas PA-C UTI symptoms (Primary Dx) 05/25/2025 2:30 PM EDT Telemedicine [facility] at [facility] [address] [place] [address] Sabi Rosas PA-C UTI symptoms (Primary Dx) 05/25/2025 Travel 05/25/[address] [phone] Verito Rutherford MD 05/14/2025 10:45 AM EDT Office Visit [address] [place] [phone] Verito Rutherford MD Encounter to establish care (Primary Dx) 05/14/2025 Travel from Last 3 Months Family History Medical History Relation Name Comments Kidney disease Father COPD Mother Pacemaker Mother Valvular heart disease Mother Colon cancer Paternal Grandfather Ovarian cancer Sister Relation Name Status Comments Father Mother Paternal Grandfather Sister Social History Tobacco Use Types Packs/Day Years Used Date Smoking Tobacco: Every Day Cigarettes Smokeless Tobacco: Never Tobacco Cessation:Ready to Q uit: Not Asked; Counseling Given: Not Answered Alcohol Use Standard Drinks/Week Comments Yes 0 (1 standard drink = 0.6 oz pur e alcohol) glass of wine 3-4 days a week [facility] Utilities Answer Date Recorded In the past 12 months has th e electric, gas, oil, or water company threatened to shut off services in your home? No 05/14/2025 Social Connection and Isolat ion Panel [NHANES] Answer Date Recorded In a typical week, how many times do you talk on the phone with family, friends, or neighbors? More than three times a week 05/14/2025 Frequency of Social Gatherin gs with Friends and Family Not on file 05/14/2025 Attends Orthodox Services Not on file 05/14 Active Member of Clubs or Organizations Not on f ile 05/14/2025 Attends Club or Organization Meetings Not on rosaura e 05/14/2025 Marital Status Not on file 05/14/2025 AUDIT-C Answer Date Recorded Q1: How often do you have a drink containing alcohol? 4 or more times a week 05/14/2025 Q2: How many drinks containi ng alcohol do you have on a typical day when you are drinking? 1 or 2 Frequency of Binge Drinking Not on file 04/26 PHQ-2 Answer Date Recorded PHQ-2 Total Score 1 05/14/2025 Hunger Vital Sign Answer Date Recorded Within the past 12 months, y ou worried that your food would run out before you got the money to buy more. Never true 05/14/20 25 Within the past 12 months, t he food you bought just didn't last and you didn't have money to get more. Never true 05/14/2025 PRAPARE - Transportation Answer Date Re corded In the past 12 months, has l ack of transportation kept you from medical appointments or from getting medications? No 04/26 In the past 12 months, has l ack of transportation kept you from meetings, work, or from getting things needed for daily living? No 05/14/2025 Housing Stability Vital Sign Answer Cipriano e Recorded In the last 12 months, was t here a time when you were not able to pay the mortgage or rent on time? No 05/14/2025 In the past 12 months, how m any times have you moved where you were living? 0 05/14/2025 At any time in the past 12 m [facility], were you homeless or living in a halfway (including now)? No 05/14/2025 Education Answer Date Recorded What is the highest level of school you have completed or the highest degree you have received? Associate degree: academic program 05/14/2025 Comments Unknown Sex and Gender Information Value Date Recorded Sex Assigned at Female 12/11/2024 3:42 PM EST Legal Sex Female 3:05 PM EST Gender Identity Female 12/11/2024 3:42 PM EST Sexual Orientation Not on file Last Filed Vital Signs Vital Sign Reading Time Taken Comments Blood Pressure 125/56 05/25/2025 2:20 PM EDT Pulse 77 05/25/2025 2:20 PM EDT Temperature 36.8 C (98.3 F) 05/25/2025 2:20 PM EDT Respiratory Rate 18 05/25/2025 2:20 PM EDT Oxygen Saturation 95% 05/25/2025 2:20 PM EDT Inhaled Oxygen Concentration - - Weight 71.2 kg (157 lb) 05/25/2025 2:20 PM EDT Height 162.6 cm (5' 4 ) 05/25/2025 2:20 PM EDT Body Mass Index 26.95 05/25/2025 2:20 PM EDT Plan of Treatment Upcoming Encounters Date Type Department Care Team (Late st Contact Info) Description 09/03/2025 11:00 AM EDT Office Visit [address] [place] [phone] Verito Rutherford MD [address] [place] [address] Health Maintenance Due Date Last Done Comments Hepatitis C Virus Screening 1955 Physical 1972 DTaP/Tdap/Td Vaccines (1 - Tdap) 1973 Pneumococcal Vaccines 50+ (1 of 2 - PCV) 1973 Zoster (Shingles) Vaccine (1 of 2) 1973 Mammogram 1994 Colonoscopy 1999 RSV Vaccine 60 years and older and [...] Procedure Name Priority Date/Time Associated Diagnosis Comments URINE CULTURE Routine 05/25/2025 2:35 PM EDT UTI symptoms POCT URINALYSIS DIPSTICK, AUTOMATED Routine 05/25/2025 2:31 PM EDT UTI symptoms from Last 3 Months Results * (ABNORMAL) Urine Culture (05/25/2025 2:35 PM EDT) Culture SEE NOTE(A) [employer] Comment: CULTURE, URINE, ROUTINE Micro Number: [id number] Test Status: Final Specimen Source: Urine Specimen Quality: Adequate Result: Greater than 100,000 CFU/mL of Escherichia coli E.coli INT SIMON AMOX/CLAVULANATE R >=32 AMP/SULBACTAM R >=32 CEFAZOLIN R >=32 1 CEFEPIME S <=0.12 CEFTAZIDIME I 8 CEFTRIAXONE S 1 CIPROFLOXACIN S <=0.06 GENTAMICIN S <=1 IMIPENEM S 0.5 LEVOFLOXACIN S <=0.12 MEROPENEM S <=0.25 NITROFURANTOIN S 32 PIP/TAZOBACTAM R >=128 TRIMETHOPRIM/SULFA S <=20 S = Susceptible I = Intermediate R = Resistant NS = Not susceptible SDD = Susceptible Dose Dependent * = Not Tested NR = Not Reported NN = See Therapy Comments THERAPY COMMENTS Note 1: For uncomplicated UTI caused by E. coli, K. pneumoniae or P. mirabilis: Cefazolin is susceptible if SIMON <32 mcg/mL and predicts susceptible to the oral agents cefaclor, cefdinir, cefpodoxime, cefprozil, cefuroxime, cephalexin and loracarbef. 05/25/2025 2:35 PM EDT 05/26/2025 2:35 PM EDT Sabi Rosas PA-C LAB AMB MICRO ORDERABLES Final Result [facility] [address] [place] [phone] * (ABNORMAL) POCT Urinalysis Dipstick, Automated (05/25/2025 2:31 PM EDT) Source, UA Clean Catch Color, UA Yellow Yellow & Clear, Yellow Clarity, UA Cloudy(A) Clear Glucose, UA Negative Negative Bilirubin, UA Negative Negative Ketones, UA Negative Negative Spec Grav, UA 1.020 1.005, 1.010, 1.015, 1.020, 1.025 Blood, UA Small (+)(A) Negative pH, UA 7.5 5.0, 5.5, 6.0, 6.5, 7.0, 7.5, 8.0 Protein, UA Negative Negative Urobilinogen, UA 0.2 0.2, 1.0 Nitrite, UA Negative Negative Leukocyte Esterase, UA Trace(A) Negative Lot Number [id number] Resizer Operator Pass Pass Urine 05/25/2025 2:31 PM EDT BaileySanna'Baxter-Porsha PA-C POINT OF CARE TEST ORDERABLES Final Result from Last 3 Months Insurance BLUE CROSS OUT OF STATE - [facility] NETWORK Care Teams Sole Polisher Relationship Specialty Start Date End Date Verito Rutherford MD [address] [place] [address] PCP - General Internal Medicine 05/14/25 Sabi Rosas PA-C [facility] [address] Physician Driver Education Instructor Internal Medicine 05/25/25
--- OUTSIDE RECORDS SUMMARY | 2025-07-20 13:07 | XMS_ITS | Clinical Summary ---
Author Organization [address] [facility] Address [address] [place] [address] Phone Care Team Providers Care Education Diagnostician Name Role Phone Riley Martinez MD Primary Care Provide r Allergies Active Allergy Reactions Criticality Noted Date Comments Codeine Anxiety,Psychiatric, N ausea Only,Nausea And Vomiting 07/20/2025 Gabapentin 06/21/2023 Other 07/20/2025 Other Reaction(s): GRASS/CATS Hydroperoxides of Linalool and hydroperoxides of the Limonene per [facility] patch testing October 2019. Tetanus Toxoid 07/20/2025 Other Reaction(s): ? serum human or animal that I reacted to Tetracycline 06/21/2023 Medications pantoprazole (PROTONIX) 40 mg EC tabletIndications :Gastroesophageal reflux disease with esophagitis, unspecified whether hemorrhage Take 1 tablet (40 mg total) by mouth 2 (two) times a day. 180 tablet 3 4 Active MAGNESIUM CARBONATE ORAL Take by [...] D-3) 5,000 Units tablet Take by mouth. Activ e methylphenidate (RITALIN) 20 mg tablet Take 1 tablet (20 mg total) by mouth 1 (one) time each day. Active predniSONE (DELTASONE) 20 mg tablet Take 6 [...] each day. 90 each 3 5 Active amLODIPine (NORVASC) 10 mg tablet TAKE 1 TABLET BY MOUTH DAILY 90 tablet 1 5 Active calcium citrate (CALCITRATE) 1200 mg (250 mg elemental calcium) tablet Take 1 tablet (1,200 mg total) by mouth 2 (two) times a day. 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 Dr. Catherine. Hoarseness 07/20/2025 IFG (impaired fasting glucose) 07/20/2025 IPMN (intraductal papillary mucinous neoplasm) 0 07/20/2025 Liver cyst 07/20/2025 Overview (07/20/2025): on abd MRI Lower back pain 07/20/2025 Lumbar radiculopathy 07/20/2025 Macrocytic 07/20/2025 OA (osteoarthritis) of knee 07/20/2025 Pancreatic cyst 07/20/2025 Polyp of colon 07/20/2025 Overview (07/20/2025): Colonoscopy December 07, 2019, 3 mm ascending colon polyp. Sessile. Pathology pending. [facility] - Dr. Catherine. sessile Psoriasis 07/20/2025 Restless legs syndrome 07/20/2025 Sciatica 07/20/2025 Disorder of rotator cuff 07/20/2025 Scoliosis 07/20/2025 Somatoform pain disorder 07/20/2025 Temporal arteritis ([facility] V24, [facility]/HCC V28) Overview (07/20/2025): (left)-10/19/2020. Urinary frequency 07/20/2025 Vaginal dryness 07/20/2025 Personal history of adenomatous and serrated col on polyps 07/20/2025 Hematochezia 07/20/2025 Coronary artery disease invo lving redding coronary artery of redding heart without angina pectoris 12/30/2024 Assessment & [...] Encounters Date Type Department Care Team Description 07/20/2025 8:00 AM EDT Office Visit Gastroenterology - [address] [place] [address] Pillo Vasquez MD Change in bowel function (Primary Dx); Hematochezia; Personal history of adenomatous and serrated colon polyps from Last 3 Months Immunizations Name Administration Dates Next Due Influenza Quadravalent, 0.5m l (Fluad) 65yo and older 09/28/2023 Influenza Quadrivalent, 0.5m l, preservative free (Fluarix; FluLaval; Fluzone) ages 6mo and older (Afluria) 3yo and older 10/23/2018,11/04/2016,09/18/2013 Influenza trivalent, 0.5mL ( Fluad) 65yo and older 09/17/2024,08/30/2022,08/09/2021 Influenza trivalent, 0.5mL ( Fluzone High-dose) 65yo and older 11/19/2020 Influenza trivalent, 0.5mL, preservative free (Fluarix; FluLaval; Fluzone) ages 6mo and older (Afluria) 3 years and older 09/30/2015 Influenza trivalent, with preservative (Fluzone; Afluria) 6mo and older 11/19/2020,10/10/2014,10/07/2012,2010,07/30/2010 Pneumococcal conjugate 13 va lent (Prevnar 13, PCV13) 2mo and older 11/26/2019 Td, Unspecified 11/25/2007 Surgical History Surgery Date Site/Laterality Comments OTHER SURGICAL HISTORY PROCEDURE: HISTORY OTHER; COMMENT: cervix cryosurgery cataract OTHER SURGICAL HISTORY PROCEDURE: HISTORY OTHER; COMMENT: EGD OTHER SURGICAL HISTORY PROCEDURE: HISTORY OTHER; COMMENT: ARTHROSCOPIC REPAIR OF ROTATOR CUFF COLONOSCOPY LIVER BIOPSY 2019? SECTION, LOW TRANSVERSE 1993 Medical History Medical History Date Comments Abnormal [...] V28) DX:Temporal arteritis (HCC) Urinary frequency DX:Urinary desi quency [...] coronary artery calcification and symptoms are sug PONV (postoperative nausea a nd vomiting) As a teen Delayed emergence from gener al anesthesia 2021 Motion sickness Since childhood Anemia 2019 Diverticulosis Irritable bowel syndrome 1979 GERD (gastroesophageal reflu x disease) Hernia, internal Family History Medical History Relation Name Comments Hemochromatosis Brother Manny Heard Hypertension Mother Cari Félix Colon cancer Paternal Grandfather Joshua Heard Sr Diabetes Sister 1 Elise Heard Stroke Sister 1 Elise Heard Hemochromatosis Sister 2 Lily Gar Irritable bowel syndrome Son Darinel Kevin Relation Name Status Comments Brother Manny Heard Mother Cari Heard Paternal Grandfather Joshua Heard Sr Sister 1 Elise Heard Sister 2 Lily Gar Son Social History Tobacco Use Types Packs/Day Years [...] EST Inhaled Oxygen Concentration - - Weight 72.9 kg (160 lb 12.8 oz) 07/20/2025 7:56 AM EDT Height 162.6 cm (5' 4 ) 07/20/2025 7:56 AM EDT Body Mass Index 27.6 07/20/2025 7:56 AM EDT Plan of Treatment Health Maintenance Due Date Last Done Comments Breast Cancer Screening 1955 DTaP,Tdap,and Td Vaccines (2 - Td or Tdap) 11/25/2017 11/25/2007 Pneumococcal Vaccine: 50+ Years (2 of 2 - PPSV23) 01/21/2020 11/26/2019 Colorectal Cancer Screening: Colonoscopy 10/24/2022 Falls Risk Assessment 10/24/2022 Hepatitis C Screening 10/24/2022 Medicare Annual Wellness Visit 10/24/2022 Osteoporosis Screening (Bone Density Screening) 10/24/2022 Social Influencers of Health Screening 10/24/2022 Depression Screening 11/25/2024 COVID-19 Vaccine (7 - Moderna risk season) 2025 10/06/2024, 11/09/2022, 04/27/2022, Additional history exists Zoster Vaccines (2 of 2) 05/10/2025 03/15/2025 Influenza Vaccine (#1) 2025 , 09/28/2023, 08/30/2022, Additional history exists Hypertension/CHF/CAD Annual BMP Blood Test 07/20/2026 07/20/2025 RSV Immunization Adult Patients (1 - 1-dose 75+ series) 2029 Cholesterol Screening (Lipid Panel) 04/05/2030 04/05/2025, 01/05/2025, 06/21/2023 HIB Vaccines Aged Out No longer eligi [...] Procedure Name Priority Date/Time Associated Diagnosis Comments CBC WITH AUTO DIFFERENTIAL Routine 07/20/2025 8:30 AM EDT Change in bowel function IMMUNOGLOBULIN IGA Routine 07/20/2025 8: 30 AM EDT Change in bowel function C-REACTIVE PROTEIN Routine 07/20/2025 8: 30 AM EDT Change in bowel function CBC AND DIFFERENTIAL Routine 07/20/2025 8:30 AM EDT Change in bowel function COMPREHENSIVE METABOLIC PANEL Routine 07/20/2025 8:30 AM EDT Change in bowel function LIPID PANEL Routine 04/05/2025 9:12 AM EDT Coronary artery disease involving redding coronary artery of redding heart without angina pectoris Pure hypercholesterolemia from Last 3 Months or Most Recently Relevant to Health Maintenance Results * (ABNORMAL) CBC auto differential (07/20/2025 8:30 AM EDT) [facility] WBC 5.6 4.8 - 10.8 K/mcL LAB HEMETOLOGY METHOD 07/20/2025 10:07 AM [facility] RBC 4.30 3.80 - 4.80 M/mcL LAB HEMETOLOGY METHOD 07/20/2025 10:07 AM [facility] Hemoglobin 13.6 11.5 - 16.0 g/dL LAB HEMETOLOGY METHOD 07/20/2025 10:07 AM [facility] Hematocrit 42.7 35.0 - 47.0 % LAB HEMETOLOGY METHOD 07/20/2025 10:07 AM [facility] MCV 99.8(H) 79.0 - 98.0 FL LAB HEMETOLOGY METHOD 07/20/2025 10:07 AM [facility] MCH 31.8 27.0 - 32.0 pcg LAB HEMETOLOGY METHOD 07/20/2025 10:07 AM [facility] MCHC 31.9(L) 32.0 - 37.0 g/dL LAB HEMETOLOGY METHOD 07/20/2025 10:07 AM [facility] RDW 14.3 11.0 - 15.0 % LAB HEMETOLOGY METHOD 07/20/2025 10:07 AM [facility] Platelets 217 130 - 400 K/mcL LAB HEMETOLOGY METHOD 07/20/2025 10:07 AM [facility] MPV 10.2 7.0 - 11.0 FL LAB HEMETOLOGY METHOD 07/20/2025 10:07 AM [facility] NRBC 0.0 <1.0 % LAB HEMETOLOGY METHOD 07/20/2025 10:07 AM [facility] NRBC Absolute 0.00 <0.10 K/[facility] LAB HEMETOLOGY METHOD 07/20/2025 10:07 AM [facility] Neutrophils Relative 42.1 % LAB HEMETOLOGY METHOD 07/20/2025 10:07 AM [facility] Lymphocytes Relative 40.2 % LAB HEMETOLOGY METHOD 07/20/2025 10:07 AM [facility] Monocytes Relative 13.2 % LAB HEMETOLOGY METHOD 07/20/2025 10:07 AM [facility] Eosinophils Relative 3.2 % LAB HEMETOLOGY METHOD 07/20/2025 10:07 AM [facility] Basophils Relative 1.1 % LAB HEMETOLOGY METHOD 07/20/2025 10:07 AM [facility] Immature Granulocytes Relative 0.2 % LAB HEMETOLOGY METHOD 07/20/2025 10:07 AM [facility] Neutrophils Absolute 2.37 1.50 - 7.00 K/mcL LAB HEMETOLOGY METHOD 07/20/2025 10:07 AM [facility] Lymphocytes Absolute 2.26 1.00 - 5.00 K/mcL LAB HEMETOLOGY METHOD 07/20/2025 10:07 AM [facility] Monocytes Absolute 0.74 0.20 - 1.00 K/mcL LAB HEMETOLOGY METHOD 07/20/2025 10:07 AM [facility] Eosinophils Absolute 0.18 0.00 - 0.50 K/mcL LAB HEMETOLOGY METHOD 07/20/2025 10:07 AM [facility] Basophils Absolute 0.06 0.00 - 0.20 K/mcL LAB HEMETOLOGY METHOD 07/20/2025 10:07 AM [facility] Immature Granulocytes Absolute 0.01 0.00 - 0.03 K/mcL LAB HEMETOLOGY METHOD 07/20/2025 10:07 AM [facility] Blood Venous blood specimen / Unknown Venipuncture / Unknown 07/20/2025 8:30 AM EDT 07/20/2025 9:52 AM EDT us Pillo Vasquez MD LAB BLOOD ORDERABLES Final Result Performing Organization Address [facility]/ZIP Co de Phone Number [facility] [address] [place] [address], [place] [phone] * C-reactive protein (07/20/2025 8:30 AM EDT) C-Reactive Protein <0.29 <=0.50 mg/dL LAB CHEMISTRY METHOD 07/20/2025 11:45 AM EDT [facility] Blood Venous blood specimen / Unknown Venipuncture / Unknown 07/20/2025 8:30 AM EDT 07/20/2025 9:51 AM EDT us Pillo Vasquez MD LAB BLOOD ORDERABLES Final Result Performing Organization Address [facility] Co de Phone Number [facility] [address] [place] [address], [place] [phone] * Immunoglobulin IgA (07/20/2025 8:30 AM EDT) [facility] IgA 231 61 - 348 mg/dL LAB CHEMISTRY METHOD 07/20/2025 11:45 AM EDT [facility] Blood Venous blood specimen / Unknown Venipuncture / Unknown 07/20/2025 8:30 AM EDT 07/20/2025 9:51 AM EDT us Pillo Vasquez MD LAB BLOOD ORDERABLES Final Result Performing Organization Address City/[facility]/ZIP Co de Phone Number [facility] [address] [place] [address], [place] [phone] * Comprehensive metabolic panel (07/20/2025 8:30 AM EDT) Sodium 141 133 - 145 mmol/L LAB CHEMISTRY METHOD 07/20/2025 11:45 AM [facility] Potassium 3.8 3.5 - 5.5 mmol/L LAB CHEMISTRY METHOD 07/20/2025 11:45 AM [facility] Chloride 107 96 - 110 mmol/L LAB CHEMISTRY METHOD 07/20/2025 11:45 AM [facility] CO2 27 21 - 32 mmol/L LAB CHEMISTRY METHOD 07/20/2025 11:45 AM [facility] Anion Gap 7 3 - 11 LAB CHEMISTRY METHOD 07/20/2025 11:45 AM [facility] Glucose 91 70 - 100 mg/dL LAB CHEMISTRY METHOD 07/20/2025 11:45 AM [facility] BUN 16 5 - 25 mg/dL LAB CHEMISTRY METHOD 07/20/2025 11:45 AM [facility] Creatinine 0.90 0.50 - 1.10 mg/dL LAB CHEMISTRY METHOD 07/20/2025 11:45 AM [facility] eGFR 69 >=60 mL/min/1. 73m2 LAB CHEMISTRY METHOD 07/20/2025 11:45 AM [facility] Comment:Calculation based on the Chronic Kidney Disease Epidemiology Collaboration (CKD-EPI) equation refit without adjustment for race. BUN/Creatinine Ratio 17.8 LAB CHEMISTRY METHOD 07/20/2025 11:45 AM [facility] Calcium 8.9 8.5 - 10.5 mg/dL LAB CHEMISTRY METHOD 07/20/2025 11:45 AM [facility] AST (SGOT) 21 10 - 42 unit/L LAB CHEMISTRY METHOD 07/20/2025 11:45 AM [facility] ALT (SGPT) 29 10 - 60 unit/L LAB CHEMISTRY METHOD 07/20/2025 11:45 AM [facility] Alkaline Phosphatase 49 42 - 121 unit/L LAB CHEMISTRY METHOD 07/20/2025 11:45 AM EDT [facility] Total Protein 6.7 6.0 - 8.0 g/dL LAB CHEMISTRY METHOD 07/20/2025 11:45 AM EDT [facility] Albumin 4.1 3.2 - 5.0 g/dL LAB CHEMISTRY METHOD 07/20/2025 11:45 AM EDT [facility] Total Bilirubin 0.8 0.0 - 1.4 mg/dL LAB CHEMISTRY METHOD 07/20/2025 11:45 AM EDT [facility] Blood Venous blood specimen / Unknown Venipuncture / Unknown 07/20/2025 8:30 AM EDT 07/20/2025 9:51 AM EDT Pillo Vasquez MD LAB BLOOD ORDERABLES Final Result Performing Organization Address City/[facility]/ZIP Co de Phone Number [facility] [address] [place] [address], [place] [phone] * Lipid panel (04/05/2025 9:12 AM EDT) Pathologist [facility] Cholesterol Total 194 100 - 199 mg/dL [facility] Triglycerides 127 0 - 149 mg/dL [facility] HDL Cholesterol 75 >39 mg/dL [facility] 1 VLDL Cholesterol Calculated 22 5 - 40 mg/dL [facility] 1 LDL Chol Calc ([facility]) 97 0 - 99 mg/dL [facility] 1 Blood Venous blood specimen / Unknown 04/05/2025 9:12 AM EDT 04/05/2025 Narrative [facility] 1 - 04/06/2025 1:06 AM EDT Performed at: 01 - [facility] [id number] [place] Department Supervisor: Demetrice Jimenez MD, Phone: [phone] Rosemarie Paris NP LAB BLOOD ORDERABLES Final Resu lt [facility] 1 from Last 3 Months or Most Recently Relevant to Health Maintenance Insurance [employer] [place] MEDICARE ADVANTAGE Care Teams Education Diagnostician Relationship Specialty Start Date End Date Riley Martinez MD [address] [place] [address] [place] PCP - General 09/18/24
== END 2025-07-20 12:52 | disposition home or self-care (01) ==
LOC: HO.RHES 12:14
PROVIDERS: PCP Internal Medicine; Visit Provider Internal Medicine Rheumatology
DX: M31.6 Other giant cell arteritis (principal)
CPT/HCPCS: 99214; G2211

== ENCOUNTER → 2025-07-20 12:12 | Outpatient (BNVA) | payer MEDICARE, SELFPAY | PROVIDERS: PCP Internal Medicine; Visit Provider Internal Medicine Rheumatology | DX: M31.6 Other giant cell arteritis (principal) | CPT/HCPCS: 99212 ==

== ENCOUNTER 2025-10-19 09:25 | Outpatient (REF) | payer MEDICARE, SELFPAY ==
[2025-10-19 14:19] LABS: Baso%MD 1.6 %; Eos%MD 3.9 %; Hematocrit 43.8 % (37.0-47.0); Hemoglobin 14.4 g/dl (12.0-16.0); IG%MD 0.2 %; Lymph%MD 39.8 %; Mean Corpuscular HGB Conc 32.9 g/dl (31.0-35.0); Mean Corpuscular Hemoglobin 33.0 pg (27.0-33.0); Mean Corpuscular Volume 100.2 fL (80.0-98.0); Mono%MD 11.7 %; NRBC Abs Auto 0.000 X10*3/uL (0.0-0.012); NRBC Pct Auto 0.0 /100WBC (0.0-0.2); Neut%MD 42.8 %; Platelet Count 222 X10*3/uL (160-400); Red Blood Count 4.37 X10*6/uL (4.20-5.50); WBCANC 5.1 X10*3/uL; White Blood Count 5.1 X10*3/uL (4.8-10.8)
[2025-10-19 14:47] LABS: Atypical Lymph Absolute Manual 0.2 x10*3/uL; Atypical Lymphs Percent Manual 3 % (0-6); Basophils Abs Manual 0.1 X10*3/uL (0.0-0.2); Basophils Percent Manual 1 % (0-2); Eosinophils Absolute Manual 0.2 X10*3/uL (0.0-0.4); Eosinophils Percent Manual 4 % (0-4); Lymphocytes Absolute Manual 1.8 X10*3/uL (1.2-4.9); Lymphocytes Percent Manual 35 % (20-40); Monocytes Absolute Manual 0.5 X10*3/uL (0.1-1.2); Monocytes Percent Manual 10 % (2-11); Neutrophils Percent Manual 47 % (45-73)
[2025-10-19 14:49] LABS: Band Neutrophils Percent 0 % (3-5); Neutrophils Absolute Manual 2.4 X10*3/uL (2.0-8.3); RBC Morphology NORMAL
[2025-10-19 14:58] LABS: Erythrocyte Sedimentation Rate 2 MM/HR (0-20)
[2025-10-19 19:03] LABS: Alanine Aminotransferase 38 U/L (0-31); Aspartate Amino Transferase 26 U/L (5-31); Cholesterol 180 mg/dL (<200); Estimated Glomerular Filt Rate > 60; HDL Cholesterol 66 mg/dL (>40); Triglycerides 149 mg/dL (<150)
== END 2025-10-19 09:26 | disposition home or self-care (01) ==
LOC: HO.HKASLDS 09:25
PROVIDERS: PCP Internal Medicine; Visit Provider Internal Medicine Rheumatology
DX: M31.6 Other giant cell arteritis (principal); M85.80 Other specified disorders of bone density and structure, unspecified site; M32.9 Systemic lupus erythematosus, unspecified; Z79.899 Other long term (current) drug therapy
CPT/HCPCS: 36415; 80061; 82565; 84450; 84460; 85007; 85025; 85027; 85652; 86140; 99212

== ENCOUNTER 2025-10-19 09:25 | Outpatient (AMB) | payer MEDICARE, SELFPAY ==
--- NOTE | 2025-10-19 09:26 | MHC.OFFVIS ---
Vital Signs 10/19/25 09:27 Height 5 ft 4 in Weight 159 lb 9.835 oz BMI 27.4 BP 122/82 Blood Pressure Location Rt brachial Position Sitting Pulse 81 Pulse Source Pulse Oximeter Pulse Oximetry (%) 95 Oxygen Delivery Method Room Air Intake Visit Reasons: 3 Months Intake Note: Pt is present today for a follow up for OA. Accompanied by: Self / Same As Patient Allergies codeine Allergy (Mild, Verified 10/19/25 09:27) Vomiting environmental allergies Allergy (Mild, Verified 10/19/25 09:27) swelling, watery eyes, swelling lips tetracycline Allergy (Mild, Verified 10/19/25 09:27) Unknown gabapentin Adverse Reaction (Intermediate, Verified 10/19/25 09:27) crazy, sick HPI HPI 3 Months: Details: She is doing well. If she is tapering prednisone 1 mg every month. She started 3 mg over the weekend. Denies any GCA or PMR symptoms. With decreasing prednisone she notices increased joint pain but it is tolerable she is also experiencing increased pain in her hands. Denies any new joint swelling. Physical Exam Vital Signs: Last Vital Signs Pulse 81 10/19/25 09:27 BP 122/82 10/19/25 09:27 Pulse Ox 95 10/19/25 09:27 Oxygen Delivery Method Room Air 10/19/25 09:27 BMI result Body Mass Index 27.4 Const Other: General: Comfortable CVS: RRR Respiratory: clear to auscultation bilaterally. Good respiratory effort Skin: No lesions seen MSK: No tenderness of bilateral temples. +2 radial pulse bilaterally. +2 Right temporal pulse. No temporal or jaw tenderness on palpation. No tenderness of any joint. No synovitis of any joints. Heberden nodes present. Normal range of motion of upper extremity and lower extremity. Assessment & Plan Assessment & Plan (1) Giant cell arteritis: Comment: Doing well on slow taper of prednisone. Rheumatology history: Patient has biopsy confirmed GCA (L bx 09/2020) treated with prednisone (09/2020-10/2023) and Actemra (08/2021-06/2024), relapsed 09/2024 presenting with recurrent symptoms of headaches nausea, vomiting, weight loss as patient had on initial presentation with elevated inflammatory arthritis. Her [facility] with ESR 0.5 mg/dL and CRP 1 mm/hr while she was on Actemra and in remission. Actemra was discontinued at [facility]. She relapsed (weight loss, headache, nausea). Resumed Actemra and prednisone 20 mg daily with resolution of symptoms 09/2024. Inflammatory markers normalized December 2024. 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 Alendronate was started September 2021. Code(s): M85.80 - Other specified disorders of bone density and structure, unspecified site Category: Medical Plan: We will request bone density report from 2022 from the [facility] x2 request Continue alendronate 70 mg once weekly Continue calcium 600 mg twice a day and vitamin-D 25 mcg daily Bone density is due. Ordered. 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 Lipid Panel Today Z79.899 - 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 Absolute Neutrophil Count Today Z79.899 - 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 XR DEXA axial skeleton Today M85.80 - Other specified disorders of bone density and structure, unspecified site Medications: Refilled Actemra ACTPen (tocilizumab) 162 mg (0.9 mL) subcut QWEEK 3.6 ea 1RF NS Actemra ACTPen (tocilizumab) 162 mg (0.9 mL) subcut QWEEK 3.6 ea 2RF NS alendronate Take 1 tablet once weekly in the morning on an empty stomach sitting upright for 30 minutes with lots of water 70 mg PO QWEEK 12 tabs 11RF Coding Level of Care Code Est Pt Level 4 (90128) Complex visit Add On G2211 Diagnoses Giant cell arteritis M31.6 Other halfway (current) drug therapy Z79.899 Osteopenia with high risk of fracture M85.80
[2025-10-19 09:27] VITALS: BP 122/82; PULSE 81; O2SAT 95; BMI 27.4
--- OUTSIDE RECORDS SUMMARY | 2025-10-19 10:44 | XMS_ITS | Clinical Summary ---
Author Organization [employer] Address [address] [facility] [address] [place] [address] Care Team Providers Care Roll Form Operator Name Role Phone Unavailable Primary Care [...] of 2) 2004 COVID-19 Vaccine ( - 2024-2 6 season) 2025 Influenza Vaccine (#1) 2025 RSV Patients and [...]
--- OUTSIDE RECORDS SUMMARY | 2025-10-19 10:44 | XMS_ITS | Clinical Summary ---
Author Organization Formerly [facility] Address [address] [place] [address] Care Team Providers Care Coal Shooter Name Role Phone Verito Rutherford MD Primary Care Provider [phone] Sabi Rosas PA-C Unavailable [phone] Lena Birmingham MD Unavailable [phone] Timoteo Seo MD Unavailable [phone] Pillo Vasquez MD Unavailable Unavailable Taylor Virk MD Unavailable Allergies Active Allergy Reactions Criticality Noted Date Comments Amoxicillin-Pot Clavulanate GI Intolerance/Nausea /Vomiting Low 10/01/2025 Codeine Anxiety,Other (See Comments),Nausea Only,GI Intolerance/Nausea /Vomiting Low 05/22/2018 Gabapentin Delirium/Confusion /Psychosis,Other (See Comments) Medium 06/21/2023 Other Other (See Comments) Low 05/14/2025 Seasonal Hydroperoxides of Linalool and hydroperoxides of the Limonene per [place] [facility] patch testing October 2019. Tetanus Toxoid Unknown/Patient and Family Unable to Define Medium 07/20/2025 Other Reaction(s): ? serum human or animal that I reacted to Tetracycline Other (See Comments) Low 06/21/2023 Tetracyclines & Related Unknown/Patient and Family Unable to Define Medium 08/25/2025 Medications Magnesium Carbonate, Antacid, (MAGNESIUM CARBONATE PO) Take by mouth daily. Active albuterol (PROVENTIL HFA; VENTOLIN HFA) 108 (90 Base) MCG/ACT inhaler INHALE 1 PUFF BY MOUTH FOUR TIMES DAILY NEEDED FOR COUGH FOR 7 DAYS 02/10/20 25 Active alendronate (FOSAMAX) 70 MG tablet TAKE [...] tablet (40 mg total) by mouth daily. 12/30/19 25 Active buPROPion (WELLBUTRIN XL) 300 MG 24 hr tablet Take 1 tablet (300 mg total) by mouth every morning. Active Calcium Citrate 250 MG Tab 1 tablet by Mouth/Oral Cavity route every 12 hours. 04/16/20 25 Active cholecalciferol (CHOLECALCIFEROL ) 25 MCG (1000 UT) tablet Take by mouth 2 times a day. Active cetirizine (ZyrTEC) 10 MG tablet Take 1 tablet (10 mg total) by mouth daily. Active methylphenidate (RITALIN) 20 MG tablet Take 1 tablet (20 mg total) by mouth daily. Active PANTOprazole (PROTONIX) 40 MG EC tablet Take 1 tablet (40 mg total) by mouth 2 times a day. Active predniSONE (DELTASONE) 1 MG tablet 5 tablets (5 mg total). 04/14/20 25 Active tiZANidine (ZANAFLEX) 4 MG tablet Take 1 tablet (4 mg total) by mouth every 6 (six) hours. Active Actemra ACTPen 162 MG/0.9ML subcutaneous auto-injector once a week. 04/13/20 25 Active traMADol (ULTRAM) 50 MG tablet 1 tablet (50 mg total) by Mouth/Oral Cavity route 4 (four) times a day. 04/16/20 25 Active valACYclovir (VALTREX) 1000 MG tablet TAKE 2 TABLETS BY MOUTH TWICE DAILY FOR 1 DAY TAKE FOR 1 DAY FOR OUT BREAKS Active estradiol (ESTRACE) 0.01 % vaginal cream INSERT 1 GRAM VAGINALLY EVERY NIGHT AT BEDTIME FOR 14 DAYS THEN USE VAGINALLY 2 TIMES A WEEK Active clindamycin (CLEOCIN T) 1 % external gel APPLY EVERY MORNING AND EVENING TO ACNE FACE. MIXED WITH EQUAL AMOUNTS OF BENZOYL PEROXIDE GEL WHEN NEEDED 08/25/20 25 Active Acne Medication 5 5 % gel APPLY EVERY MORNING AND EVENING TO ACNE FACE. MIX WITH EQUAL AMOUNTS OF CLINDAMYCIN GEL WHEN NEEDED 08/25/20 Active UNABLE TO FIND as needed. Salacid/clobeta oint Active predniSONE (DELTASONE) 20 MG tabletIndication s:Laryngitis,Chr onic nasal congestion Take 2 tabs (40mg) for 5 days with food in the am. 10 tablet 09/28/20 25 Active valACYclovir (VALTREX) 1000 MG tabletIndication s:Oral herpes Take 2 tablets 2x/day for 1 days 4 tablet 5 10/11/20 25 Active magic mouthwash oral suspension (mixture)Indicat ions:Laryngitis Swish and spit 10 mL 4 (four) times a day. 400 mL 09/28/20 25 025 amoxicillin-clav ulanate (AUGMENTIN) 500-125 MG per tabletIndication s:Laryngitis,Chr onic maxillary sinusitis Take 1 tablet by mouth 2 (two) times a day in the morning and the early afternoon. 14 tablet 09/28/20 25 025 Discontinu ed(Med List Clean-up/O ld Med - No E-Cancel/N o AVS) valACYclovir (VALTREX) 1000 MG tabletIndication s:Oral herpes Take 2 tablets 2x/day for 1 days 4 tablet 5 09/28/20 25 025 Discontinu ed(Reorder ) amoxicillin (AMOXIL) 875 MG tabletIndication s:Sinusitis, unspecified chronicity, unspecified location Take 1 tablet (875 mg total) by mouth 2 (two) times a day. 9 tablet 10/01/20 25 025 Active Problems Problem Noted Date Diagnosed Date Nephrolithiasis 09/05/2025 Overview (09/05/2025): 4 mm nonobstructing calculus in the upper pole of the left kidney on August 19, 2023 CAT scan at [facility]. Assessment & Plan (09/05/2025 3:14 PM EDT): Continue to monitor. 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 Coronary artery disease 09/01/2025 Giant cell arteritis 09/01/2025 Primary hypertension 09/01/2025 Hyperlipidemia 09/01/[address] 09/01/2025 Encounters Date Type Department Care Team Description 09/28/2025 9:30 AM EST Office Visit [facility] [address] [facility] [address] [place] [id number] Rajat Keys PA-C Laryngitis (Primary Dx); Chronic maxillary sinusitis; Chronic nasal congestion; Ground glass opacity present on imaging of lung; Current every day smoker; Oral herpes 09/08/2025 Scanned Document [facility] [address] [facility] [address] [place] [address] Verito Rutherford MD 09/03/2025 11:00 AM EDT Office Visit [facility] [address] [facility] [address] [place] [address] Verito Rutherford MD Routine medical exam (Primary Dx); Nephrolithiasis; Tobacco use 09/02/2025 Scanned Document [facility] [address] [facility] [address] [place] [address] Verito Rutherford MD from Last 3 Months Immunizations Immunization Administration Dates Next Due Covid-19 mRNA Bivalent Vacci ne - Moderna 50 mcg/0.5mL 12+ 11/09/2022 Influenza High-Dose Trivalent,(FLUZONE HIGH-DOSE), Perservative Free IM 0.5 mL 65 years and older 11/19/2020 Influenza Virus Trivalent Sp lit Vaccine (MDV) IM 09/28/2023,08/30/2022,08/09/2021,2019,10/23/2018,11/04/2016,09/30/2015,1 12/10/2013,09/18/2013,10/07/2012, 011,07/30/2010 Influenza, Quadrivalent (FLU AD) Adjuvanted Preservative Free IM 65 years and older 09/28/2023 Influenza, Quadrivalent (FLU ARIX, AFLURIA, FLULAVAL, FLUZONE) Preservative Free IM 10/23/2018,11/04/2016,09/18/2013 Influenza, Trivalent (FLUAD) Adjuvanted Preservative Free IM 65 years and older 09/17/2024,08/30/2022,08/09/2021 Influenza, Trivalent (FLUARI X, AFLURIA, FLULAVAL, FLUZONE) Preservative Free IM 09/30/2015 Pneumococcal Conjugate 13-Valent 11/26/2019 Td, Unspecified 11/25/2007 Family History Medical History Relation Name Comments Hemochromatosis Brother Jae Kidney disease Father COPD Mother Pacemaker Mother Valvular heart disease Mother Colon cancer Paternal Grandfather Ovarian cancer Sister 1 Hemochromatosis Sister 2 Dianne Relation Name Status Comments Brother Jae Father Mother Paternal Grandfather Sister 1 Sister 2 Dianne Alive Social History Tobacco Use Types Packs/Day Years Used Date Smoking Tobacco: Every Day Cigarettes Smokeless Tobacco: Never Alcohol Use Standard Drinks/Week Comments Yes 0 (1 standard drink = 0.6 oz pur e alcohol) glass of wine 3-4 days a week [facility] Gamarities Answer Date Recorded In the past 12 months has [employer], gas, oil, or water [employer] threatened to shut off services in your home? No 05/14/2025 Social Connection and Isolation Panel Answer Date Recorded In a typical week, how many times do you talk on the phone with family, friends, or neighbors? More than three times a week 05/14/2025 Frequency of Social Gatherin gs with Friends and Family Not on file 05/14/2025 Attends [employer] Not on file 05/14 Active Member [...] Answer Date Recorded PHQ-2 Total Score 1 09/01/2025 Hunger Vital Sign Answer Date Recorded Within the past 12 months, y ou worried that your food would run out before you got the money to buy more. Never true 05/14/20 Within the past 12 months, t he [...] any time in the past 12 m [facility], were you homeless or living in a [place] health care facility (including now)? No 05/14/2025 Physical Activity Answer Date Recorded On average, how many days pe r week do you engage in moderate to strenuous exercise (like a brisk walk)? 4 days 09/01/2025 On average, how many minutes do you exercise per day at this level? 90 min 09/01/2025 Education Answer Date Recorded What is the highest level of school you have completed or the highest degree you have received? Associate degree: academic program 05/14/2025 Comments No Sex and Gender Information Value Date Recorded Sex Assigned at Female 12/11/2024 3:42 PM EST Legal Sex Female 3:05 PM EST Gender Identity Female 12/11/2024 3:42 PM EST Sexual Orientation Not on file Last Filed Vital Signs Vital Sign Reading Time Taken Comments Blood Pressure 125/80 09/28/2025 10:05 AM EST Pulse 85 09/28/2025 9:20 AM EST Temperature 36.1 C (96.9 F) 09/28/2025 9:20 AM EST Respiratory Rate 17 09/28/2025 9:20 AM EST Oxygen Saturation 96% 09/28/2025 9:20 AM EST Inhaled Oxygen Concentration - - Weight 72.2 kg (159 lb 3.2 oz) 09/28/2025 9:20 A M EST Height 162.6 cm (5' 4 ) 09/28/2025 9:20 AM EST Body Mass Index 27.33 09/28/2025 9:20 AM EST Plan of Treatment Health Maintenance Due Date Last Done Comments Advance Care Planning 1955 Hepatitis C Virus Screening 1954 Annual Wellness Visit 1972 Zoster (Shingles) Vaccine (1 of 2) 1973 Colonoscopy 1999 RSV Vaccine 50 years and older and Patients (1 - Risk 50-74 years 1-dose series) 2004 DTaP/Tdap/Td Vaccines (1 - Tdap) 11/26/2007 11/25/2007 DXA Bone Density (Females,Ages 65 and older) 2019 Pneumococcal Vaccines 50+ (2 of 2 - PPSV23, PCV20, or PCV21) 01/21/2020 11/26/2019 Influenza Vaccine 06/25/2025 09/17/2024, , 09/28/2023, Additional history exists COVID-19 Vaccine ( season) 2025 11/09/2022, 04/27/2022, 12/04/2021, Additional history exists Physical 09/03/2026 09/03/2025 Mammogram 09/29/2026 09/29/2025 Hepatitis B Vaccines Aged Out No long er eligible based on patient's age to complete this topic Procedures Procedure Name Priority Date/Time Associated Diagnosis Comments IMAGING BREAST/BX/MAMMO Routine 09/29/2025 7:27 AM EST ECG 12-LEAD Routine 09/08/2025 10:25 AM EDT LAB RESULT Routine 09/08/2025 10:24 AM EDT LAB RESULT Routine 09/08/2025 10:[address], CHEST Routine 09/07/2025 3:25 PM EDT from Last 3 Months Results * Imaging Breast/Bx/Mammo Result (09/29/2025 7:27 AM EST) Anatomical Region Laterality Modality Other us Scan Obstetrics And Gynecology IMG LEGACY PROCED URES Edited Result - Final * ECG 12 lead (09/08/2025 10:25 AM EDT) us External Provider ECG ORDERABLES Final Resul t * LAB RESULT (09/08/2025 10:24 AM EDT) Only the most recent of2 resultswithin the time period is included. us External Provider HX AMB PROCEDURES Final Res ult * CT, CHEST (09/07/2025 3:25 PM EDT) Anatomical Region Laterality Modality Other us External Provider IMG LEGACY PROCEDURES Final Result from Last 3 Months Insurance BLUE CROSS [employer] MEDICARE OUT OF NETWORK Care Teams Coal Shooter Relationship Specialty Start Date End Date Verito Rutherford MD [address] [place] [address] PCP - General Internal Medicine 05/14/25 Sabi Rosas PA-C [address] [address] Physician Title Insurance Sales Representative Internal Medicine 05/25/25 Lena Birmingham MD [id number] [address] Referring Provider Ophthalmology 09/01/25 Timoteo Seo MD [address] [facility] [place] [address] 09/01/25 Pillo Vasquez MD Referring Provider Gastroenterology 09/01/25 Taylor Virk MD [address] [place] [id number] Cardiovascular Disease 09/01/25
--- OUTSIDE RECORDS SUMMARY | 2025-10-19 10:45 | XMS_ITS | Clinical Summary ---
Author Organization [address] [facility] Address [address] [place] [address] Phone Care Team Providers Care [employer] Hazmat Tanker Driver Name Role Phone Riley Martinez MD Primary Care Provide r Allergies Active Allergy Reactions Criticality Noted Date Comments Codeine Anxiety,Psychiatric, N ausea Only,Nausea And Vomiting 07/20/2025 Gabapentin 06/21/2023 Other 07/20/2025 Other Reaction(s): GRASS/CATS Hydroperoxides of Linalool and hydroperoxides of the Limonene per [place] [facility] patch testing October 2019. Tetanus Toxoid [...] Fibrocystic breast disease 07/20/2025 Giant cell arteritis ([facility] V24, [facility] V28) 07/20/2025 Hiatal hernia 07/20/2025 Overview [...] mm ascending colon polyp. Sessile. Pathology pending. [facility] - Dr. Catherine. 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 Urinary frequency 07/20/2025 Vaginal dryness 07/20/2025 Personal history of adenomatous and serrated col on polyps 07/20/2025 Hematochezia 07/20/2025 Coronary artery disease invo lving [place] coronary artery of [place] heart without angina pectoris 12/30/2024 Assessment & [...] Encounters Date Type Department Care Team Description 08/04/2025 Telephone Gastroenterology - [address] [place] [address] Chinedu PowerhaiCAMRON castorena 07/20/2025 8:00 AM EDT Office Visit Gastroenterology - [address] [place] [address] Pillo Vasquez MD Change in bowel function (Primary Dx); Hematochezia; Personal history of adenomatous and serrated colon polyps from Last 3 Months Immunizations Immunization Administration Dates Next Due Influenza Quadravalent, 0.5m [...] childhood Anemia 2019 Diverticulosis Irritable bowel syndrome 1980 GERD (gastroesophageal reflu x disease) Hernia, internal Family History Medical History Relation Name Comments Hemochromatosis Brother Manny Heard Hypertension Mother Cari Heard Colon cancer Paternal Grandfather Joshua Heard Sr Diabetes Sister 1 Elise Heard Stroke Sister 1 Elise Heard Hemochromatosis Sister 2 Lily Gar Irritable bowel syndrome Son Darinel Kevin Relation Name Status Comments Brother Manny Heard Mother Cari Heard Paternal Grandfather Joshua Heard Sr Sister 1 Elise Heard Sister 2 Lily Gar Son Darinel Kevin Social History Tobacco Use Types Packs/Day Years [...] Vaccine: 50+ Years (2 of 2 - PPSV23, PCV20, or PCV21) 01/21/2020 11/26/2019 Falls Risk Assessment 10/24/2022 Hepatitis C Screening 10/24/2022 Medicare Annual Wellness Visit 10/24/2022 Osteoporosis Screening (Bone Density Screening) 10/24/2022 Social Influencers of Health Screening 10/24/2022 Depression Screening 11/25/2024 Zoster Vaccines (2 of 2) 05/10/2025 03/15/2025 COVID-19 Vaccine ( season) 2025 10/06/2024, 11/09/2022, 04/27/2022, Additional history exists Influenza Vaccine (#1) 2025 , 09/28/2023, 08/30/2022, Additional history exists Hypertension/CHF/CAD Annual BMP Blood Test 07/20/2026 07/20/2025 RSV Immunization Adult Patients (1 - 1-dose 75+ series) 2029 Cholesterol Screening (Lipid Panel) 04/05/2030 04/05/2025, 01/05/2025, 06/21/2023 Colorectal Cancer Screening: Colonoscopy 2034 2024, 04/16/2016 HIB Vaccines Aged Out No longer eligi [...] Procedure Name Priority Date/Time Associated Diagnosis Comments CALPROTECTIN, STOOL Routine 07/29/2025 10:34 AM EDT Change in bowel function CBC WITH AUTO DIFFERENTIAL Routine 07/20/2025 8:30 AM EDT Change in bowel function IMMUNOGLOBULIN IGA Routine 07/20/2025 8: 30 AM EDT Change in bowel function TISSUE TRANSGLUTAMINASE, IGA Routine 07/20/2025 8:30 AM EDT Change in bowel function C-REACTIVE PROTEIN Routine 07/20/2025 8: 30 AM EDT Change in bowel function CBC AND DIFFERENTIAL Routine 07/20/2025 8:30 AM EDT Change in bowel function COMPREHENSIVE METABOLIC PANEL Routine 07/20/2025 8:30 AM EDT Change in bowel function LIPID PANEL Routine 04/05/2025 9:12 AM EDT Coronary artery disease involving [place] coronary artery of [place] heart without angina pectoris Pure hypercholesterolemia EXTERNAL COLONOSCOPY REPORT Routine 2024 11:13 AM EST from Last 3 Months or Most Recently Relevant to Health Maintenance Results * Calprotectin, stool (07/29/2025 10:34 AM EDT) Calprotectin, Fecal 21.0 <50 mcg/g 08/02/2025 2:41 PM EDT [facility] Comment: <50 mcg/g Normal 50 - 120 mcg/g Borderline >120 mcg/g Abnormal Borderline results suggest repeat testing in 4 to 6 weeks. Test performed at [facility], [address] , [place] [address] Lucy Olivo MD, PhD - Tape Recording Machine Operator Stool Rectum structure / Unknown Non-blood Collection / Unknown 07/29/2025 10:34 AM EDT 07/29/2025 12:06 PM EDT Pillo Vasquez MD LAB BODY FLUIDS AND STOOLS ORDERABLES Final Result [facility] [address] [place] [address] * (ABNORMAL) CBC auto differential (07/20/2025 8:30 AM EDT) WBC 5.6 4.8 - 10.8 K/mcL LAB HEMETOLOGY METHOD 07/20/2025 10:07 AM EDT [facility] RBC 4.30 3.80 - 4.80 M/mcL LAB HEMETOLOGY METHOD 07/20/2025 10:07 AM EDT [facility] Hemoglobin 13.6 11.5 - 16.0 g/dL LAB HEMETOLOGY METHOD 07/20/2025 10:07 AM [facility] Hematocrit 42.7 35.0 - 47.0 % LAB HEMETOLOGY METHOD 07/20/2025 10:07 AM [facility] MCV 99.8(H) 79.0 - 98.0 FL LAB HEMETOLOGY METHOD 07/20/2025 10:07 AM [facility] MCH 31.8 27.0 - 32.0 pcg LAB HEMETOLOGY METHOD 07/20/2025 10:07 AM [facility] MCHC 31.9(L) 32.0 - 37.0 g/dL LAB HEMETOLOGY METHOD 07/20/2025 10:07 AM [facility] RDW 14.3 11.0 - 15.0 % LAB HEMETOLOGY METHOD 07/20/2025 10:07 AM [facility] Platelets 217 130 - 400 K/mcL LAB HEMETOLOGY METHOD 07/20/2025 10:07 AM [facility] MPV 10.2 7.0 - 11.0 FL LAB HEMETOLOGY METHOD 07/20/2025 10:07 AM [facility] NRBC 0.0 <1.0 % LAB HEMETOLOGY METHOD 07/20/2025 10:07 AM [facility] NRBC Absolute 0.00 <0.10 K/mcL LAB HEMETOLOGY METHOD 07/20/2025 10:07 AM [facility] Neutrophils Relative 42.1 % LAB HEMETOLOGY METHOD 07/20/2025 10:07 AM [facility] Lymphocytes Relative 40.2 % LAB HEMETOLOGY METHOD 07/20/2025 10:07 AM [facility] Monocytes Relative 13.2 % LAB HEMETOLOGY METHOD 07/20/2025 10:07 AM EDT [facility] Eosinophils Relative 3.2 % LAB HEMETOLOGY METHOD 07/20/2025 10:07 AM T [facility] Basophils Relative 1.1 % LAB HEMETOLOGY METHOD 07/20/2025 10:07 AM [facility] Immature Granulocytes Relative 0.2 % LAB HEMETOLOGY METHOD 07/20/2025 10:07 AM EDT [facility] Neutrophils Absolute 2.37 1.50 - 7.00 K/mcL LAB HEMETOLOGY METHOD 07/20/2025 10:07 AM T [facility] Lymphocytes Absolute 2.26 1.00 - 5.00 K/mcL LAB HEMETOLOGY METHOD 07/20/2025 10:07 AM [facility] Monocytes Absolute 0.74 0.20 - 1.00 K/mcL LAB HEMETOLOGY METHOD 07/20/2025 10:07 AM EDT [facility] Eosinophils Absolute 0.18 0.00 - 0.50 K/mcL LAB HEMETOLOGY METHOD 07/20/2025 10:07 AM [facility] Basophils Absolute 0.06 0.00 - 0.20 K/mcL LAB HEMETOLOGY METHOD 07/20/2025 10:07 AM [facility] Immature Granulocytes Absolute 0.01 0.00 - 0.03 K/mcL LAB HEMETOLOGY METHOD 07/20/2025 10:07 AM [facility] Blood Venous blood specimen / Unknown Venipuncture / Unknown 07/20/2025 8:30 AM EDT 07/20/2025 9:52 AM EDT us Pillo Vasquez MD LAB BLOOD ORDERABLES Final Result [facility] [address] [place] [address], * Tissue transglutaminase, IgA (07/20/2025 8:30 AM EDT) Tissue Transglutaminase Ab, IgA Quant 1 <4 unit/mL LAB CHEMISTRY METHOD 07/21/2025 12:25 PM EDT [facility] Tissue Transglutaminase Ab, IgA Negative Negative LAB CHEMISTRY METHOD 07/21/2025 12:25 PM EDT [facility] Blood Venous blood specimen / Unknown Venipuncture / Unknown 07/20/2025 8:30 AM EDT 07/20/2025 9:50 AM EDT Pillo Vasquez MD LAB BLOOD ORDERABLES Final Result [facility] [address] [place] [address], * C-reactive protein (07/20/2025 8:30 AM EDT) Pathologist [facility] C-Reactive Protein <0.29 <=0.50 mg/dL LAB CHEMISTRY METHOD 07/20/2025 11:45 AM EDT [facility] Blood Venous blood specimen / Unknown Venipuncture / Unknown 07/20/2025 8:30 AM EDT 07/20/2025 9:51 AM EDT Pillo Vasquez MD LAB BLOOD ORDERABLES Final Result [facility] [address] [place] [address], * Immunoglobulin IgA (07/20/2025 8:30 AM EDT) Pathologist [facility] IgA 231 61 - 348 mg/dL LAB CHEMISTRY METHOD 07/20/2025 11:45 AM EDT [facility] Blood Venous blood specimen / Unknown Venipuncture / Unknown 07/20/2025 8:30 AM EDT 07/20/2025 9:51 AM EDT Pillo Vasquez MD LAB BLOOD ORDERABLES Final Result [facility] [address] [place] [address], [place] [phone] * Comprehensive metabolic panel (07/20/2025 8:30 AM EDT) Sodium 141 133 - 145 mmol/L LAB CHEMISTRY METHOD 07/20/2025 11:45 AM [facility] Potassium 3.8 3.5 - 5.5 mmol/L LAB CHEMISTRY METHOD 07/20/2025 11:45 AM [facility] Chloride 107 96 - 110 mmol/L LAB CHEMISTRY METHOD 07/20/2025 11:45 AM [facility] CO2 27 21 - 32 mmol/L LAB CHEMISTRY METHOD 07/20/2025 11:45 AM [facility] Anion Gap 7 3 - 11 LAB CHEMISTRY METHOD 07/20/2025 11:45 AM [facility] Glucose 91 70 - 100 mg/dL LAB CHEMISTRY METHOD 07/20/2025 11:45 AM [facility] BUN 16 5 - 25 mg/dL LAB CHEMISTRY METHOD 07/20/2025 11:45 AM [facility] Creatinine 0.90 0.50 - 1.10 mg/dL LAB CHEMISTRY METHOD 07/20/2025 11:45 AM [facility] eGFR 69 >=60 mL/min/1. 73m2 LAB CHEMISTRY METHOD 07/20/2025 11:45 AM [facility] Comment:Calculation based on the Chronic Kidney Disease Epidemiology Collaboration (CKD-EPI) equation refit without adjustment for race. BUN/Creatinine Ratio 17.8 LAB CHEMISTRY METHOD 07/20/2025 11:45 AM [facility] Calcium 8.9 8.5 - 10.5 mg/dL LAB CHEMISTRY METHOD 07/20/2025 11:45 AM [facility] AST (SGOT) 21 10 - 42 unit/L LAB CHEMISTRY METHOD 07/20/2025 11:45 AM [facility] ALT (SGPT) 29 10 - 60 unit/L LAB CHEMISTRY METHOD 07/20/2025 11:45 AM [facility] Alkaline Phosphatase 49 42 - 121 unit/L LAB CHEMISTRY METHOD 07/20/2025 11:45 AM [facility] Total Protein 6.7 6.0 - 8.0 g/dL LAB CHEMISTRY METHOD 07/20/2025 11:45 AM [facility] Albumin 4.1 3.2 - 5.0 g/dL LAB CHEMISTRY METHOD 07/20/2025 11:45 AM [facility] Total Bilirubin 0.8 0.0 - 1.4 mg/dL LAB CHEMISTRY METHOD 07/20/2025 11:45 AM [facility] Blood Venous blood specimen / Unknown Venipuncture / Unknown 07/20/2025 8:30 AM EDT 07/20/2025 9:51 AM EDT Pillo Vasquez MD LAB BLOOD ORDERABLES Final Result [facility] [address] [place] [address], * Lipid panel (04/05/2025 9:12 AM EDT) Cholesterol Total 194 100 - 199 mg/dL [facility] Triglycerides 127 0 - 149 mg/dL [facility] HDL Cholesterol 75 >39 mg/dL [facility] VLDL Cholesterol Calculated 22 5 - 40 mg/dL [facility] LDL Chol Calc ([facility]) 97 0 - 99 mg/dL [facility] 1 Blood Venous blood specimen / Unknown 04/05/2025 9:12 AM EDT 04/05/2025 Narrative [facility] 1 - 04/06/2025 1:06 AM EDT Performed at: [facility] [address] [id number] Machine Tester: Demetrice Jimenez MD, Phone: [phone] us Rosemarie Paris STORE TEAM LEADER LAB BLOOD ORDERABLES Final Resu lt [facility] * External Colonoscopy Report (2024 11:13 AM EST) Anatomical Region Laterality Modality Endoscopy us Historical Provider GI~PROCEDURE ORDERABLES F inal Result from Last 3 Months or Most Recently Relevant to Health Maintenance Insurance BLUE CROSS - [place] MEDICARE ADVANTAGE Care Teams [employer] 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
--- OUTSIDE RECORDS SUMMARY | 2025-10-19 10:45 | XMS_ITS | Encounter Summary ---
Author Organization [facility] Address [address] [place] [id number] Care Team Providers Care Clay Products Machine Operator Name Role Phone Verito Rutherford MD Primary Care Provider [phone] Sabi Rosas PA-C Unavailable [phone] Lena Birmingham MD Unavailable [phone] Timoteo Seo MD Unavailable Pillo Vasquez MD Unavailable Unavailable Taylor Virk MD Unavailable Encounter Details Date Type Department Care Team (Late st Contact Info) Description 09/02/2025 Scanned Document [address] [phone] Verito Rutherford MD [address] [place] [address] Social History Tobacco Use Types Packs/Day Years Used Date Smoking Tobacco: Every Day Cigarettes Smokeless Tobacco: Never Alcohol Use Standard Drinks/Week Comments Yes 0 (1 standard drink = 0.6 oz pur e alcohol) glass of wine 3-4 days a week [facility] Utilities Answer Date Recorded In the past 12 months has [employer] gas, oil, or water company threatened to shut off services in your home? No 05/14/2025 Social Connection and Isolation Panel Answer Date Recorded In a typical week, how many times do you talk on the phone with family, friends, or neighbors? More than three times a week 05/14/2025 Frequency of Social Gatherin gs with Friends and Family Not on file 05/14/2025 Attends Baptism Services Not on file 05/14 Active Member [...] any time in the past 12 m [facility], were you homeless or living in a retirement (including now)? No 05/14/2025 Physical Activity Answer [...] PM EST Sexual Orientation Not on file documented as of this encounter Functional Status * Question Answer Date of Assessment Author Feeling nervous, anxious, or on edge 0 09/03/2025 10:52 AM EDT Lizz Ramirez MA Not being able to stop or control worrying 0 09/03/2025 10:52 AM EDT Lizz Ramirez MA Worrying too much about different things 0 09/03/2025 10:52 AM EDT Lizz Ramirez MA Trouble relaxing 0 09/03/2025 10:52 AM EDT Lizz Ramirez MA Being so restless that it is hard to sit still 0 09/03/2025 10:52 AM EDT Lizz Ramirez MA Becoming easily annoyed or irritable 0 09/03/2025 10:52 AM EDT Lizz Ramirez MA Feeling afraid as if somethi ng awful might happen 0 09/03/2025 10:52 AM EDT Lizz Ramirez MA * Over the last 2 weeks, how often have you been bothered by any of the following problems? Question Answer Date of Assessment Author OLIVER-7 Total Score 0 09/03/2025 10:52 AM EDT Lizz Ramirez MA documented as of this encounter Plan of Treatment Not on file documented as of this encounter Visit Diagnoses Not on filedocumented in this encounter Care Teams Clay Products Machine Operator Relationship Specialty Start Date End Date Verito Rutherford MD [address] [place] [address] PCP - General Internal Medicine 05/14/25 Sabi Rosas PA-C [address] [address] Physician Traveling Freight Agent Internal Medicine 05/25/25 Lena Birmingham MD [address] [address] Referring Provider Ophthalmology 09/01/25 Timoteo Seo MD [address] [address] 09/01/25 Pillo Vasquez MD Referring Provider Gastroenterology 09/01/25 Taylor Virk MD [address] [place] [address] Cardiovascular Disease 09/01/25 documented as of this encounter
--- OUTSIDE RECORDS SUMMARY | 2025-10-19 10:45 | XMS_ITS | Encounter Summary ---
Author Organization [employer] Address [address] [facility] [address] [place] [address] Care Team Providers Care Aerial Advertiser Name Role Phone Unavailable Primary Care Provider Unavailabl e Encounter Details Date Type Department Care Team (Latest Contact Info) Description 01/06/2019 Abstract [facility] CONVERSIONS Dental, Provider, DDS Social History [...]
--- OUTSIDE RECORDS SUMMARY | 2025-10-19 10:45 | XMS_ITS | Encounter Summary ---
Author Organization [facility] Address [address] [place] [address] Care Team Providers Care Hearing Stenographer Name Role Phone Verito Rutherford MD Primary Care Provider [phone] Sabi Rosas PA-C Unavailable [phone] Lena Birmingham MD Unavailable [phone] Timoteo Seo MD Unavailable [phone] Pillo Vasquez MD Unavailable Unavailable Taylor Virk MD Unavailable Encounter Details Date Type Department Care Team (Late st Contact Info) Description 09/08/2025 Scanned Document [address] [phone] Verito Rutherford MD [address] [place] [address] Social History Tobacco Use Types Packs/Day Years Used Date Smoking Tobacco: Every Day Cigarettes Smokeless Tobacco: Never Alcohol Use Standard Drinks/Week Comments Yes 0 (1 standard drink = 0.6 oz pur e alcohol) glass of wine 3-4 days a week [facility] Utilities Answer Date Recorded In the past 12 months has [employer], gas, oil, or water company threatened to shut off services in your home? No 05/14/2025 Social Connection and Isolation Panel Answer Date Recorded In a typical week, how many times do you talk on the phone with family, friends, or neighbors? More than three times a week 05/14/2025 Frequency of Social Gatherin gs with Friends and Family Not on file 05/14/2025 Attends Denominational Services Not on file 05/14 Active Member [...] any time in the past 12 m [facility], were you homeless or living in a fdc (including now)? No 05/14/2025 Physical Activity Answer [...] on filedocumented in this encounter Care Teams Hearing Stenographer Relationship Specialty Start Date End Date Verito Rutherford MD [address] [place] [address] PCP - General Internal Medicine 05/14/25 Sabi Rosas PA-C [address] [place] [address] Physician Butter Maker Internal Medicine 05/25/25 [place] [address] [place] [address] Referring Provider Ophthalmology 09/01/25 Timoteo Seo MD [address] [place] [address] 09/01/25 Pillo Vasquez MD Referring Provider Gastroenterology 09/01/25 Taylor Virk MD [address] [place] [address] Cardiovascular Disease 09/01/25 documented as of this encounter
--- OUTSIDE RECORDS SUMMARY | 2025-10-19 10:45 | XMS_ITS | Clinical Summary ---
Author Organization [facility] Address [address] [place] [address] Care Team Providers Care Aml Analyst Name Role Phone Verito Rutherford MD Primary Care Provider [phone] Allergies Active Allergy Reactions Criticality Noted Date [...] age to complete this topic Care Teams Aml Analyst Relationship Specialty Start Date End Date Verito Rutherford MD [address] [place] [address] [place] [address] PCP - General Field Support Engineer 05/13/18
== END 2025-10-19 10:11 | disposition home or self-care (01) ==
LOC: HO.RHES 09:25
PROVIDERS: PCP Internal Medicine; Visit Provider Internal Medicine Rheumatology
DX: M31.6 Other giant cell arteritis (principal); Z79.899 Other long term (current) drug therapy; M85.80 Other specified disorders of bone density and structure, unspecified site
CPT/HCPCS: 99214; G2211

== ENCOUNTER 2025-11-08 09:44 | Outpatient (REF) | payer MEDICARE, SELFPAY ==
--- NOTE | ~2025-11-08 | MM_ITS ---
EXAMINATION: DXA BONE DENSITY EXTREMITY HISTORY: M85.80 - Other specified disorders of bone density and structure, unspec... TECHNIQUE: Bridestory Dual energy absorptiometry (DEXA) of the lumbar spine, total left hip, left femoral neck and left forearm was performed. COMPARISON: None FINDINGS: The bone mineral density of the lumbar spine (L2 and L3) is 1.408 g/cm2, corresponding to a T-score of 2, and a Z-score of 3.5. This is indicative of normal bone mineral density. The bone mineral density of the left total hip is 0.867 g/cm2, corresponding to a T-score of -1.1, and a Z-score of 0.2. This is indicative of osteopenia. The bone mineral density of the left femoral neck is 0.804 g/cm2, corresponding to a T-score of -1.7, and a Z-score of -0.1. This is indicative of osteopenia. The bone mineral density of the left forearm is 0. 779 g/cm2, corresponding to a T-score of -1.1, and a Z-score of 0.8. This is indicative of osteopenia. MM/XR DEXA appendicular skeleton IMPRESSION: Based on bone mineral density, and according to World Health Organization (WHO) criteria, the diagnosis is consistent with osteopenia based on lowest T score of -1.7 in the left femoral neck. Treatment Recommendations: NOF guidelines recommend consideration for treatment in postmenopausal women and men age 50 and older presenting with the following: -A hip or vertebral (clinical or morphometric) fracture. -T-score less than or equal to -2.5 at the femoral neck or spine after appropriate evaluation to exclude secondary causes. -Low bone mass at the hip or spine and a 10-year fracture probability by FRAX of greater than or equal to 3% for hip fracture or greater than or equal to 20% for major osteoporotic fracture based on the [place] adapted WHO algorithm. Other Recommendations: All treatment decisions require clinical judgment and consideration of individual patient factors, including patient preferences, comorbidities, previous drug use, risk factors not captured in the FRAX model (e.g. frailty, falls, vitamin D deficiency, increased bone turnover, interval significant decline in bone density) and possible under or overestimation of fracture risk by FRAX. Additional medical evaluation for secondary cause of low bone mineral density may be appropriate. FUTURE SCAN RECOMMENDATION: People with diagnosed cases of osteoporosis or at high risk for fracture should have regular bone mineral density tests. For patients eligible for Medicare, routine testing is allowed once every 2 years. The testing frequency can be increased to one year for patients who have rapidly progressing disease, those who are receiving or discontinuing medical therapy to restore bone mass, or have additional risk factors. Statistically, 68% of repeat scans fall within 1 SD (+/- 0.010 g/cm2 for AP spine L1-L4) and 1 SD (+/- 0.012 g/cm2 for femur total) FRAX is a trademark of the [employer]'s [place] [facility] Met[employer], a World Health Organization (WHO) Collaborating Center. Electronically signed by: Thea Martinez MD 11/09/2025 08:38 AM [place]
== END 2025-11-08 09:45 | disposition home or self-care (01) ==
LOC: HO.MAMMO 09:44
PROVIDERS: PCP Internal Medicine; Visit Provider Internal Medicine Rheumatology
DX: Z51.81 Encounter for therapeutic drug level monitoring (principal); Z13.820 Encounter for screening for osteoporosis; M85.80 Other specified disorders of bone density and structure, unspecified site; M85.50 Aneurysmal bone cyst, unspecified site; Z79.83 Long term (current) use of bisphosphonates; Z79.899 Other long term (current) drug therapy
CPT/HCPCS: 77081

== ENCOUNTER → 2025-11-08 09:45 | Outpatient (BNV) | payer MEDICARE, SELFPAY | PROVIDERS: PCP Internal Medicine; Visit Provider Radiology Diagnostic Radiology | DX: E28.39 Other primary ovarian failure (principal) | CPT/HCPCS: 77081 ==